=== PATIENT | male | born 1945 | race Caucasian/White ===

== ENCOUNTER 2018-01-08 12:22 | Outpatient (REF) | payer MEDICARE, SELFPAY ==
[2018-01-08 21:08] LABS: Anion Gap 7.2 mmol/L (3-11); BUN 18 mg/dL (7-18); CO2 27.8 mmol/L (21.0-32.0); CREATININE 0.85 mg/dL (0.70-1.30); Calcium 8.9 mg/dL (8.5-10.1); Chloride 102 mmol/L (98-107); Glucose 83 mg/dL (70-100); Potassium 4.4 mmol/L (3.5-5.1); Sodium 137 mmol/L (136-145)
[2018-01-10 10:38] LABS: Hepatitis C Ab w Rflx HCV PCR Negative (NEGAT)
== END 2018-01-08 12:42 ==
LOC: NCHCN 12:22
PROVIDERS: PCP Internal Medicine; Visit Provider Internal Medicine
DX: I10 Essential (primary) hypertension (principal); Z11.59 Encounter for screening for other viral diseases
CPT/HCPCS: 80048; 86803

== ENCOUNTER → 2018-05-10 12:43 | Outpatient (BNVA) | payer MEDICARE, SELFPAY | PROVIDERS: PCP Internal Medicine; Visit Provider Urology | DX: N40.1 Benign prostatic hyperplasia with lower urinary tract symptoms (principal); R31.0 Gross hematuria; N13.8 Other obstructive and reflux uropathy; R97.20 Elevated prostate specific antigen [PSA] | CPT/HCPCS: 99213 ==

== ENCOUNTER 2018-05-10 13:17 | Outpatient (CLI) | payer MEDICARE, SELFPAY | END 2018-05-10 13:37 | PROVIDERS: PCP Internal Medicine; Visit Provider Urology | DX: N40.1 Benign prostatic hyperplasia with lower urinary tract symptoms (principal); N13.8 Other obstructive and reflux uropathy | CPT/HCPCS: 36415; 99213; 84153 ==

== ENCOUNTER 2019-02-10 13:38 | Outpatient (REF) | payer MEDICARE, SELFPAY ==
[2019-02-10 21:41] LABS: Anion Gap 8.2 mmol/L (3-11); BUN 16 mg/dL (7-18); CO2 27.8 mmol/L (21.0-32.0); CREATININE 0.86 mg/dL (0.70-1.30); Chloride 106 mmol/L (98-107); Glucose 82 mg/dL (74-106); Potassium 4.3 mmol/L (3.5-5.1); Sodium 142 mmol/L (136-145)
== END 2019-02-10 13:58 ==
LOC: NCHCN 13:38
PROVIDERS: PCP Internal Medicine; Visit Provider Internal Medicine
DX: I10 Essential (primary) hypertension (principal)
CPT/HCPCS: 80048

== ENCOUNTER 2019-06-02 15:06 | Outpatient (REF) | payer MEDICARE, SELFPAY ==
[2019-06-02 21:17] LABS: HGB 15.2 g/dL (13.5-17.5); Mean Corp. HGB Concentration 35.3 g/dL (32.0-36.0); Mean Corpuscular Hemoglobin 30.3 pg (27.0-33.0); Mean Corpuscular Volume 85.8 fL (80-95); Mean Platelet Volume 9.1 fL (8.0-11.0); Platelet Count 294 x1000/uL (130-400); RBC 5.01 m/cumm (4.50-6.00); RBC Distribution Width 12.2 % (11.8-14.1)
[2019-06-02 21:45] LABS: ALT 95 U/L (16-63); AST 34 U/L (15-37); Albumin 3.1 g/dL (3.4-5.0); Alkaline Phosphatase 97 U/L (46-116); Anion Gap 8.1 mmol/L (3-11); BUN 15 mg/dL (7-18); Bilirubin, Total 0.4 mg/dL (0.2-1.0); CO2 25.9 mmol/L (21.0-32.0); CREATININE 0.87 mg/dL (0.70-1.30); Calcium 8.7 mg/dL (8.5-10.1); Chloride 104 mmol/L (98-107); Creatine Kinase 64 U/L (39-308); Glucose 107 mg/dL (74-106); LDH 215 U/L (85-227); Lipase 199 U/L (73-393); Potassium 4.1 mmol/L (3.5-5.1); Sodium 138 mmol/L (136-145); Total Protein 6.2 g/dL (6.4-8.2)
== END 2019-06-02 15:26 ==
LOC: NCHCN 15:06
PROVIDERS: PCP Internal Medicine; Visit Provider Internal Medicine
DX: R07.9 Chest pain, unspecified (principal); R10.10 Upper abdominal pain, unspecified; R11.10 Vomiting, unspecified
CPT/HCPCS: 80053; 82550; 83690; 85027; 83615

== ENCOUNTER 2019-06-19 00:28 | Outpatient (CLI) | payer MEDICARE, OTHER, SELFPAY ==
--- NOTE | 2019-06-19 | DI.US_ITS ---
APPROVED REPORT EXAM: Comprehensive 2D, Doppler, and color-flow Echocardiogram Patient Location: Out-Patient Asset Analyst: Va Fel[facility] RDCS (AE) Indications: Chest pain Other Information Study Quality: Good Conclusion Left Ventricle : The left ventricle is normal size. The left ventricular systolic function is normal. The left ventricular ejection fraction is within the normal range. There is normal left ventricular wall thickness. There is normal LV segmental wall motion. The left ventricular diastolic function is normal. LVEF is 50-55%. Right Ventricle : The right ventricle is normal size. The right ventricular systolic function is norm al. The RVSP is 27.7 mmHg. Atria : The left atrium size is normal. The right atrium size is normal. Valves: There are no hemodynamically significant valvular lesions. Great Vessels : IVC is normal in size and collapses >50% with inspiration. There is no prior echocardiogram available for comparison. Wall motion Left Ventricle The left ventricle is normal size. The left ventricular systolic function is normal. The left ventric ular ejection fraction is within the normal range. There is normal left ventricular wall thickness. T here is normal LV segmental wall motion. The left ventricular diastolic function is normal. There is no ventricular septal defect visualized. LVEF is 50-55%. Right Ventricle The right ventricle is normal size. The right ventricular systolic function is normal. The RVSP is 27 .7 mmHg. Atria The left atrium size is normal. The right atrium size is normal. The interatrial septum is intact wit h no evidence for an atrial septal defect. Aortic Valve The Aortic valve is sclerotic. Aortic valve is trileaflet. There is no aortic valvular stenosis. No a ortic regurgitation is present. Mitral Valve There is mitral annular calcification. No evidence of mitral valve stenosis. Trace mitral regurgitati on. Tricuspid Valve The tricuspid valve is normal in structure. There is no tricuspid valve stenosis. Mild tricuspid regu rgitation. Pulmonic Valve The pulmonary valve is normal in structure. There is no pulmonic valvular stenosis. Trace pulmonic re gurgitation. Great Vessels The aortic root is normal in size. Aortic arch is not well visualized. Ascending aorta is normal in c aliber. IVC is normal in size and collapses >50% with inspiration. Pericardium There is no pericardial effusion. There is no pleural effusion. 2D Dimensions IVSD d PLAX 0.97 cm M: 0.6-1.2 LV Vol A2C d MOD 89.3 mL LVPW d PLAX 0.93 cm M: 0.6 - 1.2 LV Vol A4C d MOD 127.2 mL LVID d PLAX 4.51 cm M: 4.2 - 5.8 LA vol/ BSA A2C s A-L 34.3 mL/m2 LVDs 3.15 cm M: 2.5 - 4.0 LA vol/ BSA A4C s A-L 36.8 mL/m2 Ao Root d 3.08 cm M: 3.1 - 3.7 LA Vol/ BSA Biplane s A-L 37.4 mL/m2 RA Area A4C 12.10 cm2 LA Area A4C s MOD 21.46 cm2 RA Vol/ BSA A4C s A-L 15.6 mL/m2 LA Area A2C s MOD 19.72 cm2 Ao Asc Diam d 3.57 cm M: 2.6 - 3.4 LV EF A4C MOD 53.7 % LV EF Teichholz 57.1 % LV EF A2C MOD 52.6 % LVEF (Hawthorne's) 53.47 % M: 52 - 72 LV EF Biplane MOD 53.5 % LV Volume 84.31 mL M: 62 - 150 LV Volume Index 45.32 mL/m2 M: 34 - 74 LV Vol Biplane MOD 109.8 mL FS 29.80 % M-Mode TAPSE 2.31 cm (M/F) >1.7 LV Diastology MV E' medial 0.073 (>0.07 m/s) E/A Ratio 1.0 LV E/e MED 9.45 (<14) MV E Vmax 0.69 (0.4-1.3 m/s) MV E' lateral 0.101 (>0.1 m/s) MV A Vmax 0.70 (0.4-1.3 m/s) LV E/e LAT 6.80 (<14) MV E/A Ratio 0.93 MV E/E' medial 9.47 MV E/E' lateral 6.84 Aortic Valve LVOT Area 3.74 cm2 AoV Area Vmax 3.07 cm2 LVOT Vmax 0.99 m/s AoV Area/ BSA (Vmax) 1.64 cm2/m2 LVOT Mean Darron. 0.61 m/s JED Mean Darron. 2.71 cm2 LVOT Peak Grad 4.0 mmHg JED Mean Darron. Index 1.45 cm2/m2 LVOT Mean Grad 1.8 mmHg LVOT VTI 0.218 m LVOT Diam s 2.15 cm (M/F) 1.5-2.5 AoV Vmax 1.21 (0.5-1.3 m/s) Velocity Ratio 0.81 AoV Mean Darron. 0.84 m/s AoV Peak Grad 5.9 mmHg LVOT SV 81.65 mL AoV Mean Grad 3.2 (<5 mmHg) AoV VTI 0.227 (0.18-0.25 m) AoV Area VTI 3.60 (2.5-4.5 cm2) AoV Area/ BSA (VTI) 1.92 cm/m2 Mitral Valve MV DT 215 (160-240 msec) MV PHT 62 msec MV Area PHT 3.52 cm2 Pulmonary Valve PV Vmax 1.05 (0.5-1.5 m/s) RVOT Peak Gr. 2.25 mmHg PV Peak Grad 4.4 mmHg RVOT Mean Gr. 1.05 mmHg PV Mean Grad 2.4 mmHg RVOT VTI 0.137 m PV VTI 0.187 m RVOT Vmax 0.75 m/s Tricuspid Valve TR Peak Grad 24.7 mmHg TR Vmax 2.49 m/s RA Pressure 3.00 mmHg RVSP (TR) 27.7 mmHg
== END 2019-06-19 00:48 ==
PROVIDERS: PCP Internal Medicine; Visit Provider Internal Medicine
DX: R07.89 Other chest pain (principal); I10 Essential (primary) hypertension
CPT/HCPCS: 93306

== ENCOUNTER 2019-11-13 20:39 | Outpatient (REF) | payer MEDICARE, OTHER, SELFPAY ==
[2019-11-17 10:19] LABS: Lyme Ab w Rflx to Lyme Confirm Negative (Negative)
== END 2019-11-13 20:59 ==
LOC: NCHCN 20:39
PROVIDERS: PCP Internal Medicine; Visit Provider Internal Medicine
DX: M17.11 Unilateral primary osteoarthritis, right knee (principal)
CPT/HCPCS: 86618

== ENCOUNTER 2020-11-12 16:35 | Outpatient (REF) | payer MEDICARE, OTHER, SELFPAY ==
[2020-11-12 21:06] LABS: HCT 46.1 % (40.0-50.0); HGB 15.4 g/dL (13.5-17.5); MCH 29.4 pg (27.0-33.0); MCHC 33.4 % (32.0-36.0); MCV 88.1 fL (80-95); MPV 9.1 fL (8.0-11.0); Platelet Count 314 10^3/uL (130-400); RBC 5.23 10^6/uL (4.36-5.78); RDW-SD 38.5 fL; WBC 7.67 10^3/uL (4.4-10.8)
[2020-11-12 21:33] LABS: ALT 30 U/L (16-63); AST 21 U/L (15-37); Albumin 3.8 g/dL (3.4-5.0); Alkaline Phosphatase 89 U/L (46-116); Anion Gap 8.3 mmol/L (3-11); BUN 14 mg/dL (7-18); Bilirubin, Total 0.7 mg/dL (0.2-1.0); CO2 25.7 mmol/L (21.0-32.0); Calcium 9.3 mg/dL (8.5-10.1); Chloride 106 mmol/L (98-107); Glucose 86 mg/dL (74-106); Potassium 4.5 mmol/L (3.5-5.1); Sodium 140 mmol/L (136-145); Total Protein 6.7 g/dL (6.4-8.2)
== END 2020-11-12 16:36 | disposition home or self-care (01) ==
LOC: NCHCN 16:35
PROVIDERS: PCP Internal Medicine; Visit Provider Family Medicine
DX: I10 Essential (primary) hypertension (principal); Z00.00 Encounter for general adult medical examination without abnormal findings; Z87.448 Personal history of other diseases of urinary system
CPT/HCPCS: 80053; 85027

== ENCOUNTER 2021-11-21 13:19 | Outpatient (REF) | payer MEDICARE, SELFPAY ==
[2021-11-21 15:37] LABS: Anion Gap 7.3 mmol/L (3-11); BUN 17 mg/dL (7-18); CO2 26.7 mmol/L (21.0-32.0); Calcium 9.3 mg/dL (8.5-10.1); Chloride 103 mmol/L (98-107); Estimated GFR 78.49 (mL/min/1.73m2); Glucose 102 mg/dL (74-106); Potassium 4.5 mmol/L (3.5-5.1); Sodium 137 mmol/L (136-145)
--- OUTSIDE RECORDS SUMMARY | 2021-11-22 13:23 | XMS_ITS | Encounter Summary ---
:1945 Author Organization [facility] [place] [address] Care Team Providers Name Role Phone Kishore Kumar MD Primary Care Provider Reason for Visit Reason Comments Right Toe Pain Encounter Details Date Type Department Care Team Description 10/13/2011 Office Visit Orthopaedics at [facility] Miguel Garnica MD Amputation, toe, [facility] ([facility] [address] [place] [address] ORTHOPAEDIC [phone] SURGERY [place] [id number] Social History Tobacco Use Types Packs/Day Years Used Date Never Smoker Smokeless Tobacco: Never Used Alcohol Use Standard Drinks/Week Comments Yes 5.8 (1 standard drink = 0.6 oz pure alco hol) Sex Assigned at Date Recorded Not on file documented as of this encounter Last Filed Vital Signs Vital Sign Reading Time Taken Comments Blood Pressure 138/72 10/13/2011 3:54 PM EDT Pulse - - Temperature - - Respiratory Rate - - Oxygen Saturation - - Inhaled Oxygen Concentration - - Weight 86.2 kg (190 lb) 10/13/2011 3:54 PM EDT Height 172.7 cm (5' 8) 10/13/2011 3:54 PM EDT Body Mass Index 28.89 10/13/2011 3:54 PM EDT documented in this encounter Progress Notes Trevor Arredondo MD - 10/13/2011 4:20 PM EDT Mr. Carroll returns in followup today. He was seen in the emergency department six days ago when a tree fell on his right foot, partially amputating his second toe. A completion amputation was done in the emergency department and he was discharged in a hard-soled shoe. He has done well and has been taking Keflex. The wound was undressed for the first time today and it shows some initial signs of healing and small areas of maceration in between the web spaces. The toe was rewrapped with Xeroform gauze and covered in Coban. He was provided with a new orthosis that would enable him to ambulate easier. We then again encouraged him to refrain from hard physical activity over the next few weeks. He willfinish taking in the other five days of Keflex and see us back in one week's time. He will do daily dressing changes. documented in this encounter Plan of Treatment Not on filedocumented as of this encounter Visit Diagnoses Diagnosis Amputation, toe, traumatic - Primary Traumatic amputation of toe(s) (complete ) (partial), without mention of complication documented in this encounter Care Teams Dispatcher Automobile Rental Relationship Specialty Start Date End Date Kishore Kumar MD PCP - General 10/07/11 [address] [place] [address] documented as of this encounter
--- OUTSIDE RECORDS SUMMARY | 2021-11-22 13:23 | XMS_ITS | Clinical Summary ---
:1945 Author Organization [facility] [place] [address] Care Team Providers Name Role Phone Kishore Kumar MD Primary Care Provider Allergies No known active allergies Medications Medication Sig Dispensed Refills Start Date End Date Status lisinopril Take 20 mg by 0 Activ e (PRINIVIL;ZESTRIL) 20 mg mouth daily. tablet finasteride (PROSCAR) 5 Take 5 mg by 0 Active mg tablet mouth daily. atorvastatin (LIPITOR) Take 40 mg by 0 Active 40 mg tablet mouth daily. tamsulosin (FLOMAX) 0.4 Take 0.4 mg by 0 Active mg capsule mouth daily. Active Problems Problem Noted Date Amputation, toe, traumatic 10/13/2011 Immunizations Name Administration Dates Next Due Tdap Vaccine 10/07/2011 Social History Tobacco Use Types Packs/Day Years Used Date Never Smoker Smokeless Tobacco: Never Used Alcohol Use Standard Drinks/Week Comments Yes 5.8 (1 standard drink = 0.6 oz pure alco hol) Sex Assigned at Date Recorded Not on file Last Filed Vital Signs Vital Sign Reading Time Taken Comments Blood Pressure 140/80 10/20/2011 2:43 PM EDT Pulse 57 10/07/2011 10:24 PM EDT Temperature 36.6 ??C (97.9 ??F) 10/07/2011 10:24 PM EDT Respiratory Rate 18 10/07/2011 10:24 PM EDT Oxygen Saturation 98% 10/07/2011 10:24 PM EDT Inhaled Oxygen Concentration - - Weight 83.9 kg (185 lb) 10/20/2011 2:43 PM EDT Height 172.7 cm (5' 8) 10/20/2011 2:43 PM EDT Body Mass Index 28.13 10/20/2011 2:43 PM EDT Plan of Treatment Health Maintenance Due Date Last Done Comments Covid-19 Vaccine (#1) 11/14/1950 Hepatitis C Screening 1963 Lipid Screening 1963 Colonoscopy 11/14/1991 Zoster vaccine (1 of 2) 1996 Advance Directive 2001 Pneumoccocal Vaccine: 65+ (1 - PCV) 11/14/2011 Tetanus vaccine 10/06/2021 10/07/2011 Influenza (Flu) vaccine (1 of 1 - Influenza standard 10/27/2021 series) Tdap adult Completed 10/07/2011 Care Teams Speech Pathology Teacher Relationship Specialty Start Date End Date Kishore Kumar MD PCP - General 10/07/11 [address] [place] [address]
--- OUTSIDE RECORDS SUMMARY | 2021-11-22 13:23 | XMS_ITS | Encounter Summary ---
:1945 [place] [address] Care Team Providers Name Role Phone Kishore Kumar MD Primary Care Provider Reason for Visit Reason Comments Toe Amputation Encounter Details Date Type Department Care Team Description 10/07/2011 Emergency Emergency Department [facility] [place] [address] [place] [address] Social History Tobacco Use Types Packs/Day Years Used Date Never Assessed Sex Assigned at Date Recorded Not on file documented as of this encounter Last Filed Vital Signs Vital Sign Reading Time Taken Comments Blood Pressure 147/84 10/07/2011 10:24 PM EDT Pulse 57 10/07/2011 10:24 PM EDT Temperature 36.6 ??C (97.9 ??F) 10/07/2011 10:24 PM EDT Respiratory Rate 18 10/07/2011 10:24 PM EDT Oxygen Saturation 98% 10/07/2011 10:24 PM EDT Inhaled Oxygen Concentration - - Weight - - Height - - Body Mass Index - - documented in this encounter Discharge Instructions Discharge aMrie Sebastian MD - 10/07/2011 10:47 PM EDT Orthopaedic Home Care Instructions Care of Your Broken Bone Below are general guidelines to follow after treatment for a fracture. We will give you more specific instructions depending on the type and location of your injury. You will need to be aware that these guidelines are only general, each person???s recovery may vary. If you have any questions after reading this sheet, please call us. 1. INJURY: Right 2nd toe traumatic amputation, revised in ED Activity Keep your cast/splint clean and dry until you return for follow-up. For the first 72 hours, keep your injured extremity raised as much as possible. Keep your injured extremity raised above the level of the heart. Use blankets and/or pillows to help. DO NOT allow the injured extremity to dangle or excessive swelling and pain will develop. Use ice over the injured extremity for about 72 hours - at least 3-4 times per day for 20 minutes keesha time. You can use a simple plastic bag with ice (double the bag!) and place the bag over the injured extremity. Ice is effective even through the casts. Too much activity will result in discomfort and swelling, and may slow healing. You will be much happier later if you follow activity restrictions. Less is better for the first week! Weight-bearing status: Weight bear as tolerated only wearing special post-op shoe. You may want to avoid putting pressure or strain near the toe for at least a few days to allow the tissues the best chance to heal. 2. Prescriptions You were given a prescription for oxycodone: take one - two tablets every 4-6 hours as needed. They can be constipating, so I recommend also taking a stool softener such as Colace 100mg 2x/day. Stop the stool softener if you develop diarrhea. You should not drive while taking narcotic medication You may also take Acetaminophen (Tylenol) for pain but do not take more than 3000mg per day. You should find yourself needing less and less pain medication after the first few days. Take your pain medicine as directed. Take any of your other usual medicines as directed. You were also given a script for Keflex (an antibiotic) it is important that you take this as directed to prevent infection. You should take all the pills as directed. 3. Please contact us if: You have excessive swelling. Typically you have not kept the injured extremity raised high enough. If the swelling does not go down after raising the injured extremity above the heart for 3 to 4 hours, call the clinic or come to the emergency department. You feel excessive pain or your injured extremity becomes numb. Again, this usually happens when the injured extremity is not raised high enough. If the pain does not lessen after 3 to 4 hours of strict elevation, call the clinic. ?? Your cast/splint is too tight. Follow the instructions about raising the extremity. ?? You have fever >100.4, chills, nausea, vomiting, drainage from wound or other signs of infection. If you have any questions or concerns, please call the following: Orthopaedic Clinic Sunday thru Sunday 8am - 5pm (see below) Orthopaedic Physician store consultant --After 5pm and Weekends [phone] We are interested in your prompt and healthy recovery. Please follow the above instructions. Please call the office (at number below) to verify your post fracture appointment, typically the following day or Sunday if you injure yourself over the weekend. Your care today was provided by Robbi Velásquez MD Follow up in 5-7 days will be arranged in the following orthopaedic clinic General orthopedic clinic (trauma/sports/pediatrics) [phone] Spine clinic [phone] AttachmentsThe following attachments cannot be sent through Care Everywhere.TOE AMPUTATION: WHAT TO EXPECT AT HOME (GERMAN)documented in this encounter Medications at Time of Discharge Medication Sig Dispensed Refills Start Date End Date cephALEXin (KEFLEX) 500 Take 1 capsule by 40 capsule 0 10/0610/17/2011 mg capsule mouth 4 times daily for 10 days. OXYcodone (ROXICODONE) 5 Take 1-2 tablets by 60 tablet 0 10/20/2011 mg immediate release mouth every 4 hours tablet as needed for Pain. documented as of this encounter ED Notes Jett Ahmadi RN - 10/07/2011 11:26 PM EDT Toe amputation and splint completed at bedside by ortho MD. Pt right foot splint c/d/i. Pt denies pain. Flat soled shoe placed on pt by MD. Pt ambulated out of the department without problems. Jett Ahmadi RN - 10/07/2011 9:18 PM EDT Labs drawn and sent as ordered. MD at bedside to irrigate wound. documented in this encounter Miscellaneous Notes Discharge Summary - Provider, Rolan - 10/09/2011 10:14 AM EDT Miscellaneous - Provider, Rolan - 10/08/2011 12:08 AM EDT Consult Note - Marie Velásquez MD - 10/07/2011 8:07 PM EDT Art Glass Designer Consult Note Name: Antonio Carroll Age: 65 y.o. Sex; Male Date of : 1945 PCP KISHORE KUMAR MD [phone] Reason for Consult: We have been asked to see Antonio Carroll at the request of No att. providers found, for evaluation of the patient's orthopaedic injuries and recommendations for treatment. I have reviewed the available records, interviewed and examined the patient. Date of Consultation: 10/07/2011 Place of Service: Emergency Department ID: 65 y.o. Male presents to [facility] with traumatic amputation of right 2nd toe. HPI Antonio Carroll is a 65 y.o. male was cutting a silver tree. He says that the silver tree fell, hitting a fir tree which then fell down. As he attempted to run away the butt of the tree (broken end) fell onto his right forefoot. He was wearing rubber much boots, but felt immediate pain. He removed hissock to see what happened and found a mutilated 2nd toe. No loss of consciousness, no other injuriesreported. Review of Systems No fever, chills, SOB, chest pain, nausea or other constitutional symptoms reported. Past Medical and Surgical History: BPH Hypertension Hypercholesterolemia Prostate Bx Traumatic amputation of part of left great toe Prior To Admission Medications: Proscar Finasteride Lisinopril Crestor Allergies: No Known Allergies Family History: No family history on file. Social History and Habits: History Social History ??? Marital Status: Single Spouse Name: N/A Number of Children: N/A ??? Years of Education: N/A Occupational History ??? Not on file. Social History Main Topics ??? Smoking status: Not on file ??? Smokeless tobacco: Not on file ??? Alcohol Use: Not on file ??? Drug Use: Not on file ??? Sexually Active: Not on file Other Topics Concern ??? Not on file Social History Narrative ??? No narrative on file Immunizations: Immunization History Administered Date(s) Administered ??? Tdap 10/07/2011 Physical Exam: Last Set of Vitals: BP 147/84 Pulse 57 Temp(Src) 36.6 ??C (97.9 ??F) (Oral) Resp 18 SpO2 98% Physical Exam Focused Exam: Right Lower Extremity: Grossly mutilated 2nd toe. DIP hanging on by small skin bridge, middle phalanx entirely degloved. Painless range of motion to hip, knee and ankle. No gross deformity. Skin intact. Compartments soft. Crepitus not present. posterior tibial pulse 2+, dorsalis pedis pulse 2+. Sensation superficial peroneal intact, deep peroneal intact, tibial intact, medial plantar intact, lateral plantar intact, saphenous nerve distribution intact and sural nerve distribution intact. Sensation diminished at base of 2ndtoe and not present in distal toe Motor: 5/5 EHL, ankle dorsiflexion and plantarflexion Laboratory: Lab Results Component Value Date WBC 9.0 10/07/2011 Imaging: XR right foot: There is a comminuted intraarticular fracture of the distal phalanx of the 2nd toe with lateral and inferior displacement of the comminuted fragments. There is involvement of the middle phalanx as well, with a cortical disruption seen on lateral distal aspect (at the DIP joint) and a laterally displaced osteophyte fracture of the proximal lateral aspect (at the PIP joint). Procedure: Digital block performed with 15cc of 1% lidocaine and 0.5% bupivicaine Wound was irrigated copiously using 4L of NS Tenotomy scissors and a freer were used to expose the entire middle phalanx The bone was debrided back using a rongueur to the PIP joint. The skin and soft tissue were brought together to cover the proximal phalanx and closed using 3.0 nylon interrupted sutures. Assessment: Antonio Carroll is a 65 y.o. male with traumatic amputation of right 2nd toe. History is a bit strange given reported mechanism, but significant skin loss with middle phalanx exposed. Wound was irrigated, nonviable tissue from distal toe was removed. The middle phalanx was debrided back to the PIP joint. There was adequate skin at the base of the toe to allow for coverage of the proximal phalanx. Thewound was loosely closed to cover bone, dressed with xeroform, gauze, ABDs and LEO wrap. Recommendations: ?? Activity NWB RLE ?? Pain Control ?? Antibiotics patient received 2g of Ancef at [facility] ?? Keflex QID x10 days ?? Tetanus booster given ?? Discussed with Attending Staff, Dr. Garnica ?? Please call Dr. Velásquez on pager # [phone] with questions or concerns. ?? Attending store consultant: Dr. Danika VELÁSQUEZ MD 10/07/2011 ED Triage - Jett Ahmadi, RN - 10/07/2011 7:34 PM EDT At 4pm, pt states that a tree branch fell on his right foot and amputated his right 2nd to. Pt seen at outside hospital and transferred here for ortho eval. EMS reports that toe is still attached by a skin flap. Dressing on right foot c/d/i. Pt states last tetanus shot was 4 years ago. documented in this encounter Plan of Treatment Not on filedocumented as of this encounter Procedures Procedure Name Priority Date/Time Associated Comments Diagnosis XR FOOT MINIMUM 3 STAT 10/07/2011 11:04 Result s for this VIEWS PM EDT procedure are i n the results section. DIFFERENTIAL, STAT 10/07/2011 9:00 PM Results for this AUTOMATED EDT procedure are i n the results section. ABO/RH TYPING STAT 10/07/2011 9:00 PM Results for this EDT procedure are i n the results section. APTT STAT 10/07/2011 9:00 PM Results f or this EDT procedure are i n the results section. PROTHROMBIN TIME STAT 10/07/2011 9:00 PM Resul ts for this EDT procedure are i n the results section. CBC (WITH DIFF) STAT 10/07/2011 9:00 PM Result s for this EDT procedure are i n the results section. ANTIBODY SCREEN STAT 10/07/2011 9:00 PM Result s for this EDT procedure are i n the results section. TYPE AND SCREEN STAT 10/07/2011 9:00 PM ([facility]) EDT BASIC METABOLIC PANEL Routine 10/07/2011 9:00 PM Results for this (NON-FASTING) EDT procedure are in the results section. XR FOOT MINIMUM 3 STAT 10/07/2011 8:32 PM Resu lts for this VIEWS EDT procedure are i n the results section. documented in this encounter Results XR foot minimum 3 views (10/07/2011 11:04 PM EDT) Anatomical Region Laterality Modality Foot N/A Radiographic Imaging Specimen (Source) Anatomical Collection Method Collection Time Re ceived Time Location / / Volume Laterality 10/07/2011 11:04 PM EDT Narrative 10/08/2011 9:08 AM EDT Examination FOOT MIN 3 VIEWS/RIGHT Clinical History s/p traumatic amputation , s/p debrideme nt Comparison 2011 at 20/30 4. Technique 3 views of the right foot AP oblique and lateral. Findings There has been interval amputation of th e distal and middle phalanges of the 2nd digit of the right foot. Punctate ca lcific densities at surgical site may represent residual bone fragments. ??Alt ernatively, these may be related to the bandaging. Film and interpretation reviewed by the attending Procedure Note Clarice Merritt MD - 10/08/2011Formatt ing of this note might be different from the original. Examination FOOT MIN 3 VIEWS/RIGHT Clinical History s/p traumatic amputation , s/p debrideme nt Comparison 2011 at 20/30 4. Technique 3 views of the right foot AP oblique and lateral. Findings There has been interval amputation of th e distal and middle phalanges of the 2nd digit of the right foot. Punctate ca lcific densities at surgical site may represent residual bone fragments. Alter natively, these may be related to the bandaging. Film and interpretation reviewed by the attending Miguel Garnica MD IMG DX ORDERABLES ANTIBODY SCREEN (10/07/2011 9:00 PM EDT) Analysis Performed At Path logist Time Signature Ab Screen Negative [facility] Expires at [id number] CERNER [id number] on: MILLENNIUM Specimen Anatomical Collection Method Collection Time Receive d Time (Source) Location / / Volume Laterality Blood specimen 10/07/2011 9:00 PM 012 9:31 (specimen) EDT PM EDT Resulting Agency Comment Spec In Lab Robin Tejada MD BLOOD BANK ORDERABLES Performing Organization Address City/State/ZIP Code Phon e Number [address] CERNER MILLENNIUM ABO/RH TYPING (10/07/2011 9:00 PM EDT) athologist Signature ABORh Type A Pos CERNER MILLENNIUM Specimen Anatomical Collection Method Collection Time Receive d Time (Source) Location / / Volume Laterality Blood specimen 10/07/2011 9:00 PM 012 9:31 (specimen) EDT PM EDT Resulting Agency Comment Spec In Lab Robin Tejada MD BLOOD BANK ORDERABLES Performing Organization Address City/[facility] Phon e Number [address] CERNER MILLENNIUM DIFFERENTIAL, AUTOMATED (10/07/2011 9:00 PM EDT) athologist Signature Neutrophils % 66.7 34.0 - CERNER 71.0 % MILLENNIUM Neutr Abs (ANC) 5.98 1.50 - CERNER 6.30 MILLENNIUM x10(3)/mcL Lymphocytes % 23.5 19.0 - CERNER 53.0 % MILLENNIUM Lymphocytes Abs 2.1 1.0 - 3.6 CERNER x10(3)/mcL MILLENNIUM Monocytes % 8.0 4.0 - 13.0 CERNER % MILLENNIUM Monocyte Abs 0.7 0.2 - 1.0 CERNER x10(3)/mcL MILLENNIUM Eosinophils % 1.2 0.0 - 7.0 CERNER % MILLENNIUM Eosinophils Abs 0.1 0.0 - 0.5 CERNER x10(3)/mcL MILLENNIUM Basophils % 0.4 0.0 - 2.0 CERNER % MILLENNIUM Basophils Abs 0.0 0.0 - 0.2 CERNER x10(3)/mcL MILLENNIUM Immature Gran % 0.20 0.00 - CERNER 0.66 % MILLENNIUM Comment: Immature granulocytes(IG's)percentage an d absolute count will include metamyelocytes, myelocytes, and promyelo cytes. Blood smears from CBCs yielding IG's will be scanned manually for concor dance. If this scan disagrees with the automated IG or if promyelocytes are not ed, a manual differential will be performed. Christina Gran Abs 0.02 0.00 - 0.05 x10(3)/mcL CER NER MILLENNIUM Specimen Anatomical Collection Method Collection Time Receive d Time (Source) Location / / Volume Laterality Blood specimen 10/07/2011 9:00 PM 012 9:09 (specimen) EDT PM EDT Robin Tejada MD HEMATOLOGY ORDERABLES Performing Organization Address City/[facility]/[place] [address] CERNER MILLENNIUM APTT (10/07/2011 9:00 PM EDT) P athologist Signature PTT 29 25 - 35 sec CERNER MILLENNIUM Comment: Recommended therapeutic PTT range for fu ll dose unfractionated heparin is 80-114 seconds. Specimen Anatomical Collection Method Collection Time Receive d Time (Source) Location / / Volume Laterality Blood specimen 10/07/2011 9:00 PM 012 9:09 (specimen) EDT PM EDT Resulting Agency Comment Spec In Lab Robin Tejada MD HEMATOLOGY ORDERABLES Performing Organization Address City/[facility]/[place] [address] CERNER MILLENNIUM Prothrombin Time (10/07/2011 9:00 PM EDT) P athologist Signature PT 13.1 11.9 - 14.7 CERNER sec MILLENNIUM Comment: [facility] Transfusion Committee Guidelines: I NR less than 2.0, PTT less than OR equal to 43.5 seconds, or Fibrinogen gre ater than or equal to 100 mg/dl indicate adequate procoagulant activity for hemostasis in patients without underlying bleeding disorders. INR 1.0 0.9 - 1.1 CERNER MILLENNIUM Specimen Anatomical Collection Method Collection Time Receive d Time (Source) Location / / Volume Laterality Blood specimen 10/07/2011 9:00 PM 012 9:09 (specimen) EDT PM EDT Resulting Agency Comment Spec In Lab Robin Tejada MD HEMATOLOGY ORDERABLES Performing Organization Address City/State/[place] [address] CERNER MILLENNIUM (ABNORMAL) Basic Metabolic Panel (non-fasting) (10/07/2011 9:00 PM EDT) athologist Signature Glucose Lvl 87 60 - 199 CERNER mg/dL MILLENNIUM Comment: Diabetes: >=200 mg/dL plus symp toms BUN 17 10 - 20 mg/dL CERNER MILLENNIU M Creatinine 0.91 0.80 - 1.50 mg/dL CERNER MILL ENNIUM Comment: Please note that the pediatric reference intervals supplied above were not validated at [facility]. Results from pediatri c patients should be interpreted in conjunction to the patient's age, height and muscle mass. Sodium 138 135 - 145 mmol/L CERNER ROBERTO NIUM Potassium 4.3 3.5 - 5.0 mmol/L CERNER ROBERTO NIUM Comment: Please note: ??Patients with WBC >100,00 0 may have falsely elevated Potassium levels. ??For accurate Potassium quantif ication in these patients send serum separator tube (gold top) for subsequent determinations. ??Contact the Clinical Chemistry Laboratory if there are any qu estions. Chloride 107 98 - 107 mmol/L CERNER MILLENN IUM CO2 23 22 - 31 mmol/L CERNER MILLENNI UM Anion Gap 8 5 - 15 mmol/L CERNER MILLENNIU M Calcium 8.3 (L) 8.5 - 10.5 mg/dL CERNER ROBERTO NIUM Estimated GFR >60 >=60 CERNER MILLENNIU M Comment: The National Kidney Disease Education Pr ogram (NKDEP) has recommended all laboratories report estimated GFR (eGFR) along with plasma creatinine measurements to assist you with recognit ion of early kidney disease. Caveats: ??Plasma creatinine should be a t steady-state (unchanged within the past week). For patient s multiply eGFR by 1.2. The MDRD equation was developed using patients be tween the ages of 18 and 70 years. ?? The MDRD equation has not been validated for patients < 18 years of age and should not be used to assess renal function in the pediatric population. ??The MDRD eGFR equation will also overestimate the true GFR of patients above the age of 70. ??This overestimation is variable bu t increases with age. At present, NKDEP does NOT recommend usi ng the MDRD equation for drug dosing purposes and pharmacists should continue to use their current dosing methods. In addition, numerical eGFR values great er than 60 ml/min/1.73 square meters should be treated as > 60, and not an ex act number due to greater inaccuracies at these higher values. Per NKDEP, they classify normal renal function as any GFR >60ml/min/1.73 square meters; chronic kidney disease wh en GFR <60, and renal failure when GFR <15. ??This calculation may not be valid for patients with atypical muscle mass (very lean or obese), acute renal failur e, and in patients with diabetic kidney disease. References: http://nkdep.nih.gov/resources/NKCTP_Sug gestn4Labs_0606_508.pdf http://www.kidney.org/professionals/kls/ pdf/faq_gfr.pdf Dameon K, Ratna NA, Lashonda AK, Henry TS, Nithin AD, Dariela ALEX. Relative performance of the MDRD and CKD-EPI equa tions for estimating glomerular filtration rate among patients with vari ed clinical presentations. Clin J Am Soc Nephrol;6:1963-72. Specimen Anatomical Collection Method Collection Time Receive d Time (Source) Location / / Volume Laterality Blood specimen 10/07/2011 9:00 PM 012 9:09 (specimen) EDT PM EDT Resulting Agency Comment Spec In Lab Robin Tejada MD CHEMISTRY ORDERABLES Performing Organization Address City/State/ZIP Code Phon e Number [place] [phone] [facility] (ABNORMAL) CBC (with Diff) (10/07/2011 9:00 PM EDT) P athologist Signature WBC 9.0 4.0 - 10.0 CERNER x10(3)/mcL MILLENNIUM RBC 5.04 4.63 - 6.08 CERNER x10(6)/mcL MILLENNIUM Hemoglobin 15.4 13.7 - 17.5 CERNER gm/dL MILLENNIUM Hematocrit 43.6 40.0 - 51.0 CERNER % MILLENNIUM MCV 86.5 79.0 - 92.0 CERNER fL MILLENNIUM MCH 30.6 25.6 - 32.2 CERNER pg MILLENNIUM MCHC 35.3 32.0 - 36.5 CERNER gm/dL MILLENNIUM Platelets 220 145 - 370 CERNER x10(3)/mcL MILLENNIUM RDWSD 38.8 35.0 - 46.0 CERNER fL MILLENNIUM RDWCV 12.2 10.9 - 14.4 CERNER % MILLENNIUM MPV 8.8 (L) 9.0 - 12.0 CERNER fL MILLENNIUM Specimen Anatomical Collection Method Collection Time Receive d Time (Source) Location / / Volume Laterality Blood specimen 10/07/2011 9:00 PM 012 9:09 (specimen) EDT PM EDT Resulting Agency Comment Spec In Lab Robin Tejada MD HEMATOLOGY ORDERABLES Performing Organization Address City/State/ZIP Code Phon e Number [place] [phone] BANNERNER MILLENNIUM XR foot minimum 3 views (10/07/2011 8:32 PM EDT) Anatomical Region Laterality Modality Foot N/A Radiographic Imaging Specimen (Source) Anatomical Collection Method Collection Time Re ceived Time Location / / Volume Laterality 10/07/2011 8:32 PM EDT Narrative 10/08/2011 8:56 AM EDT Examination FOOT MIN 3 VIEWS/RIGHT Clinical History s/p traumatic amputation of right 2nd to e Comparison None Technique 3 views of the right foot AP oblique and lateral. Findings There is traumatic amputation of the 2nd distal phalanx at the DIP joint. The 2nd distal phalanx is completely shatter ed with multiple displaced comminuted fracture fragments. There is involvement of the 2nd middle phalanx which has a small displaced intra-articular fracture at its lateral base. 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 Irregula r osteophytes are also present in the distal tibia, at the tibiotalar joint. Impression Traumatic amputation at the 2nd DIP join t Shattered 2nd distal phalanx with large number of comminuted displaced bone fragments Additional intra-articular fracture of t he base of the 2nd middle phalanx. Film and interpretation reviewed by the attending Procedure Note Clarice Merritt MD - 10/08/2011Formatt ing of this note might be different from the original. Examination FOOT MIN 3 VIEWS/RIGHT Clinical History s/p traumatic amputation of right 2nd to e Comparison None Technique 3 views of the right foot AP oblique and lateral. Findings There is traumatic amputation of the 2nd distal phalanx at the DIP joint. The 2nd distal phalanx is completely shatter ed with multiple displaced comminuted fracture fragments. There is involvement of the 2nd middle phalanx which has a small displaced intra-articular fracture at its lateral base. 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 Irregula r osteophytes are also present in the distal tibia, at the tibiotalar joint. Impression Traumatic amputation at the 2nd DIP join t Shattered 2nd distal phalanx with large number of comminuted displaced bone fragments Additional intra-articular fracture of t he base of the 2nd middle phalanx. Film and interpretation reviewed by the attending Miguel Garnica MD IMG DX ORDERABLES documented in this encounter Visit Diagnoses Not on filedocumented in this encounter Administered Medications Inactive Administered Medications - up to 3 most recent administrations Medication Order MAR Action Action Date Dose Rate Site BUpivacaine (PF) (MARCAINE) 0.5 Given by Other 10/07/2011 9:00 PM EDT 1 mg % (5 mg/mL) injection 1 dose, Starting on 10/07/11 at 2048, Until 10/07/11 at 2099, BRIGIDO MCKENZIE: Cabinet Override documented in this encounter Active and Recently Administered Medications Times are shown in EDT. No Frequency Medication Order 10/05/2011 10/06/2011 10/07/2011 BUpivacaine (PF) (MARCAINE) 0.5 % (5 mg/mL) injection (COMPLETED ) 2099 (Given by Other - Provider: Brigido Mckenzie RN - Comment: Bottle given to MD Velásquez at her request for her administration.) 1 dose, Starting on 10/07/11 at 2048, Until 10/07/11 at 2099, BRIGIDO MCKENZIE: Cabinet Override documented in this encounter Care Teams Corrosion Technician Relationship Specialty Start Date End Date Kishore Kumar MD PCP - General 10/07/11 [address] [place] [address] documented as of this encounter
--- OUTSIDE RECORDS SUMMARY | 2021-11-22 13:24 | XMS_ITS | Encounter Summary ---
:1945 Author Organization [facility] Address [address] [place] [address] Care Team Providers Name Role Phone Unavailable Primary Care Provider Unavailable Encounter Details Date Type Department Care Team Description 12/31/2012 Hospital Encounter [facility] - S Unknown, Pro Lana wagoner MD [address] [facility] [phone] [place] [address] (Work) [phone] Social History Tobacco Use Types Packs/Day Years Used Date Never Assessed Sex Assigned at Date Recorded Not on file documented as of this encounter Discharge Disposition Disposition Code Departure Means Destination Home or Self [place] documented in this encounter Plan of Treatment Not on filedocumented as of this encounter Visit Diagnoses Not on filedocumented in this encounter
--- OUTSIDE RECORDS SUMMARY | 2021-11-22 13:24 | XMS_ITS | Encounter Summary ---
:1945 Author Organization [facility] Address [address] [place] [address] Care Team Providers Name Role Phone Kishore Kumar MD Primary Care Provider Encounter Details Date Type Department Care Team Description 05/25/2016 Hospital Encounter [facility] - S Unknown, Pro Lana wagoner MD 1 [facility] [phone] [place] [address] (Work) [phone] Social History Tobacco Use Types Packs/Day Years Used Date Never Assessed Sex Assigned at Date Recorded Not on file documented as of this encounter Discharge Disposition Disposition Code Departure Means Destination Home or Self Usp documented in this encounter Plan of Treatment Not on filedocumented as of this encounter Visit Diagnoses Not on filedocumented in this encounter Care Teams Vp Informatics Relationship Specialty Start Date End Date Kishore Kumar MD PCP - General 01/01/13 [address] [place] [address] documented as of this encounter
--- OUTSIDE RECORDS SUMMARY | 2021-11-22 13:24 | XMS_ITS | Encounter Summary ---
:1945 Author Organization [facility] Address [address] [place] [address] Care Team Providers Name Role Phone Unavailable Primary Care Provider Unavailable Encounter Details Date Type Department Care Team Description 12/31/[address] [facility] Esthela Cunningham MD [phone] [address] [facility] [address] [place] [phone] (Wo rk) Social History Tobacco Use Types Packs/Day Years Used Date Never Assessed Sex Assigned at Date Recorded Not on file documented as of this encounter Plan of Treatment Not on filedocumented as of this encounter Procedures Procedure Name Priority Date/Time Associated Diagnosis Comme nts SURGICAL PATHOLOGY Routine 12/31/2012 21:57 Resul ts for this EST procedure are i n the results section. documented in this encounter Results SURGICAL PATHOLOGY (12/31/2012 21:57 EST) Pathology Report: SURGICAL PATHOLOGY REPORT [facility] Reports generated via electronic interface contain bennett ginal data; LAB however they are lacking the format of the original re port. Caution should be taken when reading/interpreting unfo rmatted reports. Name: ? MIKE DODGE ? Accession #: ? [id number] ? : ? 1945 (Age: 67) ??M ? Collect Date: ? 12/31/2012 ? Location: ? [facility] ? Receive Date: ? 013 ? Provider: ESTHELA CUNNINGHAM MD Copy to: ROBERT TURNER MD ? Final Pathologic Diagnosis: PROSTATE, TRANSURETHRAL CURETTAGE: - ??Prostatic glandular and stromal hyperplasia. Document reviewed and electronically signed by: LESA RASMUSSEN MD Report ??Date: 01/02/2013 16:20 By the signature above, the attending physician certif ies that he/she has personally conducted a gross and/or microscopic examin ation of the described specimens and rendered or confirmed the above diagnosi s. Specimen(s) Received: Prostate tissue Clinical History: BPH with obstruction Gross Description: ? Received in formalin labelled with proper patient identification (initials M, S) and prostate tissue are multiple whitten-dickinson, rubbery and cauterized soft tissue fragments (19.5 g, 8.5 x 6.0 x 2.0 cm in aggreg ate). Human Resources Talent Manager sections are submitted in cassettes 1-9. Kayla Mccarty 01/01/2013 10:34 AM End of Report Specimen Performing Organization Address City/State/ZIP Code Phon e Number [facility] [address] [place] [address] SERVICES [facility] [address] [place] [address] documented in this encounter Visit Diagnoses Not on filedocumented in this encounter
--- OUTSIDE RECORDS SUMMARY | 2021-11-22 13:24 | XMS_ITS | Encounter Summary ---
:1945 Author Organization [facility] Address [address] [place] [address] Care Team Providers Name Role Phone Unavailable Primary Care Provider Unavailable Encounter Details Date Type Department Care Team Description 01/30/2003 Results Only [facility] - [place]ortney mendoza, Jean Marie Garcia MD conversion [address] [address] [phone] Social History Tobacco Use Types Packs/Day Years Used Date Never Assessed Sex Assigned at Date Recorded Not on file documented as of this encounter Plan of Treatment Not on filedocumented as of this encounter Procedures Procedure Name Priority Date/Time Associated Diagnosis Comme nts SURGICAL PATHOLOGY Routine 01/30/2003 0:00 EST Re sults for this procedure are i n the results section. documented in this encounter Results SURGICAL PATHOLOGY (01/30/2003 0:00 EST) Pathology Report: SURGICAL PATHOLOGY REPORT [facility] Reports generated via electronic interface contain bennett ginal data; LAB however they are lacking the format of the original re port. Caution should be taken when reading/interpreting unfo rmatted reports. Name: ? ELVIS DODGE ? Accession #: ? [id number] ? : ? 1945 (Age: 57) ??M ? Collect Date: ? 01/30/2003 ? Location: ? [facility] ? Receive Date: ? 003 ? Provider: JEAN MARIE THORPE MD Copy to: ROBERT TURNER MD ? Final Pathologic Diagnosis: A. ?Prostate, right apex, biopsy: 1. ?Benign prostatic glands and stroma wi th atrophy. 2. ?Acute and chronic prostatitis with eo sinophils. B. ?Prostate, right mid, biopsy: 1. ?Benign prostatic glands and stroma wi th atrophy. 2. ?Single focus of cribriform hyperplasi a. 3. ?Acute and chronic prostatitis. C. ?Prostate, right base, biopsy: 1. ?Benign prostatic glands and stroma wi th atrophy. 2. ?Chronic prostatitis. D. ?Prostate, left apex, biopsy: 1. ?Benign prostatic glands and stroma wi th atrophy. 2. ?Acute and chronic prostatitis. E. ?Prostate, left mid, biopsy: 1. ?Benign prostatic glands and stroma wi th atrophy. 2. ?Acute and chronic prostatitis. F. ?Prostate, left base, biopsy: 1. ?Benign prostatic glands and stroma wi th atrophy. 2. ?Chronic prostatitis. Document reviewed and electronically signed by: Fidelina Pang [facility] Report ??Date: 02/05/2003 15:11 By the signature above, the attending physician certif ies that he/she has personally conducted a gross and/or microscopic examin ation of the described specimens and rendered or confirmed the above diagnosi s. Specimen(s) Received: ? Ultrasound guided core biopsy - prostate A. ?Rt apex (#1) B. ?Rt mid (#2) C. ?Rt base (#3) D. ?Lt apex (#4) E. ?Lt mid (#5) F. ?Lt base (#6) Clinical History: ? Elevated PSA 4.4 % free; PSA 0.7; previous () b iopsy 03/07/02 Gross Description: ? Received in formalin labelled Dodge and #1 ??Rt apex are two whitten-white tissues measuring 1.9 x 0.1 x 0.1 cm and 1.8 x 0.1 x 0.1 cm, which are submitted as (A). Received in formalin labelled Dodge and #2 ??Rt mi d are three whitten-white tissues which vary in size f rom 0.2 x 0.1 x 0.1 cm to 2.4 x 0.1 x 0.1 cm, which are submitted as (B). Received in formalin labelled Dodge and #3 ? ?Rt base are three whitten-white tissues which vary in size f rom 0.2 x 0.1 x 0.1 cm to 1.5 x 0.1 x 0.1 cm, which are submitted as (C). ?? Received in formalin labelled Dodge and #4 ??Lt ap ex are two whitten-white tissues which vary in size f rom 1.9 x 0.1 x 0.1 cm to 2.0 x 0.1 x 0.1 cm, which are submitted as (D). Received in formalin labelled Dodge and #5 ??Lt mi d are two whitten-white tissues which vary in size f rom 1.9 x 0.1 x 0.1 cm to 2.4 x 0.1 x 0.1 cm, which are submitted as (E). Received in formalin labelled Dodge and #6 ??Lt ba se are two whitten-white tissues each measuring 1.5 x 0.1 x 0.1 cm, which are submitted as (F). ??(Dr. Guthrie-TRINIDAD)/[facility] End of Report Specimen Performing Organization Address City/State/ZIP Code Phon e Number [facility] [address] [place] [address] SERVICES [facility] [address] [place] [address] documented in this encounter Visit Diagnoses Not on filedocumented in this encounter
--- OUTSIDE RECORDS SUMMARY | 2021-11-22 13:24 | XMS_ITS | Encounter Summary ---
:1945 Author Organization [facility] Address [address] [place] [address] Care Team Providers Name Role Phone Kishore Kumar MD Primary Care Provider Encounter Details Date Type Department Care Team Description 11/14/2019 Lab Requisition [facility] Outr Resulting Lab, Pathology & Laboratory Provider [facility] [address] [place], [place] [address] Social History Tobacco Use Types Packs/Day Years Used Date Never Assessed Sex Assigned at Date Recorded Not on file documented as of this encounter Plan of Treatment Not on filedocumented as of this encounter Procedures Procedure Name Priority Date/Time Associated Diagnosis Comme nts LYME AB Routine 2019 12:40 EDT Results for this procedure are i n the results section . documented in this encounter Results LYME AB (2019 12:40 EDT) Pathologist Sig nature Lyme Ab NegativeComment: New Negative [facility] 3rd generation assay LABORATORY SERVICES in use 08/06/2019 Specimen Blood - Venous blood (substance) Performing Organization Address City/State/ZIP Code Phon e Number [facility] [address] [place] [address] SERVICES documented in this encounter Visit Diagnoses Not on filedocumented in this encounter Care Teams Lumber Stacker Driver Relationship Specialty Start Date End Date Kishore Kumar MD PCP - General 01/01/13 [address] [place], [place] [id number] documented as of this encounter
--- OUTSIDE RECORDS SUMMARY | 2021-11-22 13:24 | XMS_ITS | Encounter Summary ---
:[address] [facility] Address [address] [place] [address] Care Team Providers Name Role Phone Unavailable Primary Care Provider Unavailable Encounter Details Date Type Department Care Team Description 03/07/2002 Results Only [facility] - Kortney mendoza, Jean Marie Garcia MD conversion [address] [address] [phone] Social History Tobacco Use Types Packs/Day Years Used Date Never Assessed Sex Assigned at Date Recorded Not on file documented as of this encounter Plan of Treatment Not on filedocumented as of this encounter Procedures Procedure Name Priority Date/Time Associated Diagnosis Comme nts SURGICAL PATHOLOGY Routine 03/07/2002 0:00 EST Re sults for this procedure are i n the results section. documented in this encounter Results SURGICAL PATHOLOGY (03/07/2002 0:00 EST) Pathology Report: SURGICAL PATHOLOGY REPORT [facility] Reports generated via electronic interface contain bennett ginal data; LAB however they are lacking the format of the original re port. Caution should be taken when reading/interpreting unfo rmatted reports. Name: ? ELVIS DODGE ? Accession #: ? [id number] ? : ? 1945 (Age: 56) ??M ? Collect Date: ? 03/07/2002 ? Location: ? [facility] ? Receive Date: ? 003 ? Provider: JEAN MARIE THORPE MD Copy to: SHANELL TURNER MD ? Final Pathologic Diagnosis: A. ?Prostate, right base, needle biopsy: 1. ?High grade prostatic intraepithelial neoplasia (PIN), focal. ??See comment. 2. ?Chronic prostatitis. B. ?Prostate, right mid, needle biopsy: 1. ?Benign pros tatic glands and stroma with basal cell hyperplasia and focal atrophy. 2. ?Acute and chronic prostatitis. 3. ?Negative for malignancy. C. ?Prostate, right apex, needle biopsy: 1. ?Benign pros tatic glands and stroma with atrophy. ??See comment. 2. ?Acute and chronic prostatitis. 3. ?Negative for malignancy. D. ?Prostate, left base, needle biopsy: 1. ?Benign prostatic glands and stroma wi th atrophy. 2. ?Acute and chronic prostatitis. 3. ?Negative for malignancy. E. ?Prostate, left mid, needle biopsy: 1. ?Benign pros tatic glands and stroma with basal cell hyperplasia and focal atrophy. ??See comment. 2. ?Acute and chronic prostatitis. 3. ?Negative for malignancy F. ?Prostate, left apex, needle biopsy: 1. ?Benign prostatic glands and stroma wi th atrophy. 2. ?Acute and chronic prostatitis. 3. ?Negative for malignancy. ?? Comment: ? Deeper sections of (A ) have been examined. ??Director Occupational sections of (A), (C), and (E) have been revie wed at intradepartmental consultation conference. ?? Document reviewed and electronically signed by: LESA RASMUSSEN MD Report ??Date: 03/13/2002 14:15 By the signature above, the attending physician certif ies that he/she has personally conducted a gross and/or microscopic examin ation of the described specimens and rendered or confirmed the above diagnosi s. Specimen(s) Received: A. ?Rt base (#1) B. ?Rt mid (x2) (#2) C. ?Rt apex (#3) D. ?Lt base(#4) E. ?Lt mid (x2) (#5) F. ?Lt apex (#6) Clinical History: ? R sided firmness Gross Description: ? Received in formalin labeled Dodge and Rt base is a single cylinder of whitten-red tissue measuring 1.0 cm in length and 0.1 cm in diameter. ??The specimen is submitted entirely as (A). Received in formalin labeled Dodge and Rt mi d are two cylinders of white tissue measuring 1.0 and 1.1 cm in length respectively, with diameters of 0.1 cm and 0.1 cm. ??The specimen is submitted entirely as (B ). Received in formalin labeled Dodge and Rt apex is a single cylinder of white-whitten tissue measuring 1.5 cm in length and 0.1 cm in diameter. ??The specimen is submitted entirely as (C). Received in formalin labeled Dodge and Lt base is a single cylinder of whitten-white tissue measuring 1.8 cm in length and 0.1 cm in diameter. ??The specimen is submitted entirely as (D). Received in formalin labeled Dodge and Lt mid are two cylinders of white-whitten tissue measuring 1 .8 and 2.0 cm in length respectively. ??Both have a diameter of 0.1 cm. ??The specimen is submitted entire ly as (E). Received in formalin labeled Dodge and Lt apex is a single cylinder of white-whitten tissue measuring 1.0 cm in length and 0.1 cm in diameter. ??Also received in this container is a smaller fragment of white-whitten tissue, vaguely cylindrical, measuring 0.3 c m in length. ??The specimen is submitted entirely as (F). ??(Dr. Taylor)/[facility] End of Report Specimen Performing Organization Address City/State/ZIP Code Phon e Number [facility] [address] [place] [address] SERVICES [facility] [address] [place] [address] documented in this encounter Visit Diagnoses Not on filedocumented in this encounter
== END 2021-11-21 13:20 | disposition home or self-care (01) ==
LOC: NCHCN 13:19
PROVIDERS: PCP Internal Medicine; Visit Provider Family Medicine
DX: Z00.00 Encounter for general adult medical examination without abnormal findings (principal); I10 Essential (primary) hypertension
CPT/HCPCS: 80048

== ENCOUNTER → 2022-11-24 09:08 | Outpatient (CLI) | payer MEDICARE, OTHER, SELFPAY ==
--- NOTE | 2022-11-24 | DI.RAD_ITS ---
Exam(s) XR KNEE LT 3V AP,LAT,TANIA EXAM: XR KNEE LT 3V AP,LAT,TANIA CLINICAL HISTORY: OA MULTIPLE JOINTS, M15.9. TECHNIQUE: 2D digital imaging was performed of the left knee. Three images were obtained. AP, late ral and PA tunnel views were obtained. COMPARISON: No priors for comparison. FINDINGS: BONES: No acute fracture is present. No bony destructive lesion is seen. JOINTS: There are marked tricompartment degenerative changes present characterized by joint space hamida rowing and osteophytes. The findings are most marked in the medial femoral tibial and patellofemoral joint. No joint effusion is seen. No loose body. SOFT TISSUE: Normal. IMPRESSION: Marked osteoarthritis of the knee. DATA REPOSITORY: RADIATION DOSE DELIVERED:
--- NOTE | 2022-11-24 13:15 | DI.RAD_ITS ---
Exam(s) XR KNEE RT 3V AP,LAT,TANIA EXAM: XR KNEE RT 3V AP,LAT,TANIA CLINICAL HISTORY: OA MULTIPLE JOINTS,M15.9. TECHNIQUE: 2D digital imaging was performed of the right knee. Three views obtained. AP, lateral an d PA tunnel views were obtained. COMPARISON: No exams were available for comparison FINDINGS: BONES: No acute fracture is present. No bony destructive lesion is seen. JOINTS: There are marked tricompartment degenerative changes characterized by joint space narrowing a nd osteophytes. Findings are most marked in the medial femoral tibial patellofemoral joint. No join t effusion is seen. SOFT TISSUE: Atherosclerosis. IMPRESSION: Marked osteoarthritis of the right knee. DATA REPOSITORY: RADIATION DOSE DELIVERED:
== END ==
PROVIDERS: PCP Internal Medicine; Visit Provider Family Medicine
DX: M17.0 Bilateral primary osteoarthritis of knee (principal)
CPT/HCPCS: 73562

== ENCOUNTER 2023-10-28 09:18 | Emergency (ER) | payer MEDICARE, OTHER, SELFPAY ==
[2023-10-28 09:23] VITALS: BP 186/102; PULSE 69; RESP 10; TEMP 37; O2SAT 97
--- NOTE | 2023-10-28 09:30 | DI.CT_ITS ---
Exam(s) CT HEAD WO EXAM: CT HEAD WO CLINICAL HISTORY: Seizure like activity. TECHNIQUE: Imaging Protocol: Axial computed tomography images with coronal and sagittal reformatted images were created and reviewed COMPARISON: No exams were available for comparison FINDINGS: There are no skull fractures. There is complete opacification of the right maxillary sinus. There is some mucoperiosteal thickening in this sinus. No bone dehiscence evident. There is some mucosal th ickening in the opposite-left maxillary sinus, not associated with a fluid level nor bone dehiscence. The frontal sinuses are clear as are the sphenoid sinuses. There is evidence of probable prior in T endoscopic surgery with resection of multiple bilateral ethmoidal air cells. Left mastoid air cell s are clear as is the left middle ear cavity. There is opacification mastoid air cells on the opposi te-right side. Also opacification of the ipsilateral aditus ad antrum. Right middle ear ossicles ap pear intact. There is technical artifact over the lower aspect of the posterior fossa making evaluation of the mos t inferior aspect of the cerebellar hemispheres not possible. The visualized middle and upper aspect s of the cerebellar hemispheres appear unremarkable. There is no evidence of intracranial hemorrhage, mass effect, or shift of midline structures. There are no extra-axial fluid collections. The ventricles are not enlarged or shifted and there is no blo od within the ventricular system nor within the basal cisterns. IMPRESSION: No acute intracranial findings on this noninfused CT scan of the brain. Lower most aspects of both c erebellar hemispheres are somewhat obscured by artifact. Significant paranasal sinus disease as described above. Also opacified right mastoid air cells. Con sistent with right mastoiditis. Left side mastoid air cells appear unremarkable. RADIATION DOSE DELIVERED: 985.33mGy.cm Total DLP DATA REPOSITORY: All CT scans at this facility are submitted to the National Radiology Data Registry (NRDR) Dose Index Registry (DIR) with the [employer] (ACR). RADIATION OPTIMIZATION: All CT scans at this facility use at least one of these dose optimization te chniques: automated exposure control; mA and/or kV adjustment per patient size (includes targeted exa ms where dose is matched to clinical indication); or iterative reconstruction.
--- NOTE | 2023-10-28 09:39 | DI.RAD_ITS ---
Exam(s) XR CHEST 1V IN DI DEPT EXAM: XR CHEST 1V IN DI DEPT CLINICAL HISTORY: Seizure like activity. TECHNIQUE: 2D digital imaging was performed. COMPARISON: No exams were available for comparison FINDINGS: Single AP portable view. Heart size is upper normal. The mediastinum is not widened. Lungs are clear. No infiltrates nor obvious pleural effusions. IMPRESSION: No acute pulmonary findings on this single AP portable view of the chest. DATA REPOSITORY: RADIATION DOSE DELIVERED:
--- NOTE | 2023-10-28 09:48 | ED.GENADUL_ITS ---
Discharge Plan Disposition Patient Disposition: Home Condition: Stable Discharge Details Clinical Impression: Observed seizure-like activity Primary Care Provider: Kishore Kumar ED Provider: Marlys Rogers Home Meds and New Rx's Prescriptions: Continued finasteride 5 mg tablet 5 mg PO DAILY Qty: 90 3RF atorvastatin [Lipitor] 40 MG tablet 40 mg PO HS lisinopril 20 MG tablet 10 mg PO HS aspirin [Aspir-81] 81 MG tablet,delayed release (DR/EC) 81 mg PO HS Advil PM 1 EACH tablet 1 cap PO HS PRN Discharge Instructions Instructions: Seizures, Adult ED Additional Instructions: Please follow up with PCP and Neurology in the next 2 weeks. No evidence of CVA today on the workup, labs are largely within normal limits. No urinary tract infection. Follow up with primary care provider in 3-5 days. Return to ED sooner if any worsening or concerns. Referrals: Kishore Kumar MD [Primary Care Provider] - 3 days Melany Solis MD [ [facility] STAFF PHYSICIAN] - 1 week (Seizure like activity) Discharge Data Discharge Date/Time-TO BE ENTERED AT DEPARTURE: 10/28/23 12:53 HPI General Mode of arrival: ambulatory . Date/Time Provider Initiated Documentation: 10/28/23 09:19 . Limitations to Documentation: no limitations . Information obtained by: patient, family, RN notes reviewed and old records reviewed . HPI Narrative: 77-year-old male presents to the ER with seizure-like activity which occurred last night while in bed. reports that patient was becoming very stiff, moaning and got up and walked around and was incontinent of urine. Patient was confused and agitated last night. She reports that he has no history of seizures patient has no memory of the event. He did bite his tongue which is swollen. He denies any recent trauma no head injuries. He does drink alcohol however has not had any last night. Patient reports that he felt nauseous prior to dinner no vomiting. Prior to that had diarrhea for a couple of days. Denies any headache, blurry vision. He reports feeling tired today but no significant complaints. Does have a past medical history of high cholesterol hypertension. Related Data Home Medications ?Medication ?Instructions ?Recorded ?Confirmed aspirin 81 mg tablet,delayed 81 mg PO HS 12/25/12 10/28/23 release (Aspir-) atorvastatin 40 mg tablet (Lipitor) 40 mg PO HS 12/25/12 10/28/23 lisinopril 20 mg tablet 10 mg PO HS 12/25/12 10/28/23 ibuprofen-diphenhydramine citrate 1 cap PO HS PRN 04/05/17 10/28/23 200 mg-38 mg tablet (Advil PM) finasteride 5 mg tablet 5 mg PO DAILY prostate bleeding 05/10/18 10/28/23 #90 tabs Previous Rx's ?Medication ?Instructions ?Recorded finasteride 5 mg tablet 5 mg PO DAILY prostate bleeding 05/10/18 #90 tabs Allergies Allergy/AdvReac Type Severity Reaction Status Date / Time ciprofloxacin (From Cipro) AdvReac Severe n/v Unverified 10/28/23 09:37 General Stated Complaint: Seizure SALVATORE: 3 Review of Systems All systems reviewed & are unremarkable except as noted in HPI and below Constitutional Constitutional: Reports as per HPI Genitourinary Genitourinary: Reports urinary incontinence Neurologic Neurologic: Reports as per HPI, Reports confusion and Reports convulsions Psychiatric Psychiatric: Reports confusion Exam Narrative Exam Narrative: Constitutional: Alert and oriented x3. Appears stated age. Normal body habitus. Head: Normocephalic, no trauma. Eyes: Pupils PERRL, Red reflex noted, EOM's intact. Eyelids symmetrical without lesions, discharge, or swelling. ENT: Bilateral TM's WNL, External ear normal to inspection, no mastoid TTP, swelling, or erythema, Nasal turbinates WNL, no nasal discharge. Normal dentition, Posterior pharynx WNL, no exudate. Chest: RRR, Normal S1, S2, distal pulses intact. Resp: Lungs clear to auscultation bilaterally, no wheezes, rales, or rhonchi. Abdomen: Soft, non-distended, Normoactive bowel sounds all 4 quads. Musculoskeletal: Normal gait, Moves all 4 extremities without difficulty. Skin: No suspicious rashes or lesions. Capillary refill less than 2 sec. Neurologic: Cranial nerves II-XII intact. Alert and oriented x 3. Motor: No deficits noted. Sensory: Intact bilaterally all 4 extremities. 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 Hematologic/Lymphatic: No ecchymosis, no lymphadenopathy. Course Vital Signs Vital signs: Vital Signs Temperature 37.0 C 10/28/23 09:23 Pulse 69 10/28/23 09:23 Respiratory Rate 10 L 10/28/23 09:23 Blood Pressure 186/102 H 10/28/23 09:23 Pulse Oximetry 97 10/28/23 09:23 Temperature 37.0 C 10/28/23 09:23 Pulse 69 10/28/23 09:23 Respiratory Rate 10 L 10/28/23 09:23 Blood Pressure 186/102 H 10/28/23 09:23 Blood Pressure Position Supine 10/28/23 09:23 Pulse Oximetry 97 10/28/23 09:23 Oxygen Delivery Method Room Air 10/28/23 09:23 Oxygen Flow Rate 0 10/28/23 09:23 Pain Level 0 10/28/23 09:23 Medical Decision Making 77-year-old male presents to the ER with seizure-like activity which occurred last night while in bed. reports that patient was becoming very stiff, moaning and got up and walked around and was incontinent of urine. Patient was confused and agitated last night. She reports that he has no history of seizures patient has no memory of the event. He did bite his tongue which is swollen. He denies any recent trauma no head injuries. He does drink alcohol however has not had any last night. Patient reports that he felt nauseous prior to dinner no vomiting. Prior to that had diarrhea for a couple of days. Denies any headache, blurry vision. He reports feeling tired today but no significant complaints. Does have a past medical history of high cholesterol hypertension. Workup ordered including CBC CMP urinalysis UDS ethyl alcohol level, head CT and chest x-ray. Tick and Lyme panel added onto labs. Labs show white blood cell count 12.2, neutrophils 9.20, CMP within normal limits, lipase TSH within normal limits, urinalysis shows no leukocytes no ni trites no evidence of UTI, THC on UDS is positive. Tick and Lyme panel pending at this time. COVID flu and RSV negative. Head CT within normal limits and chest x-ray also within normal limits. On patient reevaluation discussed labs and imaging with patient and family, he reports he feels fine. They do feel comfortable being discharged home. Did give him a referral for neurology for follow-up and PCP close follow-up. Discussed strict return instructions to return to the ER for any feeling ill at all and or worsening symptoms. They verbalized agreement with the plan. Patient remained hemodynamically stable throughout the remainder of stay. Patient was given 0.5 of lorazepam IV prior to discharge. This text was generated using [employer] system, please disregard any oddities of phrase or misspellings. Medical Records Medical records reviewed: Yes I reviewed the patient's medical records. Lab Data Lab results reviewed: Yes I reviewed the patient's lab results. Labs: Laboratory Tests Range/Units 10/28/23 10/28/23 10/28/23 10:09 11:15 11:22 WBC (4.4-10.8) 10^3/uL 12.24 H RBC (4.36-5.78) 10^6/uL 4.95 Hgb (13.5-17.5) g/dL 15.2 Hct (40.0-50.0) % 43.9 MCV (80-95) fL 89 MCH (27.0-33.0) pg 30.7 MCHC (32.0-36.0) % 34.6 RDW (11.8-14.1) % 11.9 Plt Count (130-400) 10^3/uL 263 MPV (8.0-11.0) fL 8.3 Immature Gran % % 0.3 Neutrophils % % 75.2 Lymphocytes % % 13.2 Monocytes % % 10.8 Eosinophils % % 0.2 Basophils % % 0.3 Nucleated RBC % (0.0-0.3) % 0.0 Absolute Neutrophils (1.2-6.7) 10^3/uL 9.20 H Absolute Lymphocytes (1.2-3.4) 10^3/uL 1.62 Absolute Monocytes (0.1-0.8) 10^3/uL 1.32 H Absolute Eosinophils (0.0-0.7) 10^3/uL 0.02 Absolute Basophils (0.0-0.2) 10^3/uL 0.04 Sodium (136-145) mmol/L 139 Potassium (3.5-5.1) mmol/L 3.9 Chloride (98-107) mmol/L 105 Carbon Dioxide (21.0-32.0) mmol/L 28.1 Anion Gap (3-11) mmol/L 5.9 BUN (7-18) mg/dL 13 Creatinine (0.70-1.30) mg/dL 0.9 Est GFR (CKD-EPI 2020) (mL/min/1.73m2) 88.51 Glucose (74-106) mg/dL 100 Calcium (8.5-10.1) mg/dL 9.1 Magnesium (1.8-2.4) mg/dL 2.1 Total Bilirubin (0.2-1.0) mg/dL 0.89 AST (15-37) U/L 27 ALT (16-63) U/L 23 Alkaline Phosphatase (46-116) U/L 87 Total Protein (6.4-8.2) g/dL 6.5 Albumin (3.4-5.0) g/dL 3.4 Lipase (16-77) U/L 22 TSH (0.36-3.74) uIU/mL 1.08 Urine Color (Yellow) Yellow Urine Clarity (Clear) Clear Urine pH (5-8) 6.0 Ur Specific [place] (1.005-1.025) 1.020 Urine Protein (Neg-Trace) mg/dL Negative Urine Ketones (Negative) mg/dL Negative Urine Blood (Negative) Negative Urine Nitrite (Negative) Negative Urine Bilirubin (Negative) Negative Urine Urobilinogen (Up to 0.2) mg/dL 0.2 Ur Leukocyte Esterase (Negative) Negative Urine Glucose (Negative) mg/dL Negative Urine Opiates Screen (Negative) Negative Urine Methadone Screen (Negative) Negative Ur Barbiturates Screen (Negative) Negative Ur Tricyclics Screen (Negative) Negative Ur Amphetamines Screen (Negative) Negative U Benzodiazepines Scrn (Negative) Negative Urine Cocaine Screen (Negative) Negative Ur THC Screen (Negative) Positive A Ethyl Alcohol (<10) mg/dL < 3.0 COVID-19 Source Nasopharynx SARS-CoV-2 (PCR) (Negative) Negative Influenza Type A (PCR) (Negative) Negative Influenza Type B (PCR) (Negative) Negative RSV (PCR) (Negative) Negative Quality:SDOH Health Related Social Needs: No Data to Display PFSH All Active Problems (Updated 10/28/23 @ 12:11 by Marlys Rogers NP) Observed seizure-like activity (Acute) BPH w urinary obs/LUTS (Acute 02/12/17) Chronic ethmoidal sinusitis (Acute 05/22/16) Chronic frontal sinusitis (Acute 05/22/16) Chronic maxillary sinusitis (Acute 05/22/16) Chronic sphenoidal sinusitis (Acute 05/22/16) Deviated nasal septum (Acute 05/22/16) Gross hematuria (Acute 05/08/17) Hypertrophy of nasal turbinates (Acute 05/22/16) 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 Lion Ruiz 12-31-2012.by Gross hematuria (Acute) Social History Smoking/Tobacco Use Status: Never Smoking risk assessment performed?: Yes Alcohol Intake: current Alcohol Intake frequency: 0-2 drinks per day Drug use: Daily Substance use type: marijuana Do you feel safe in your relationship?: Yes
[2023-10-28 10:11] LABS: Abs Immature Grans 0.04 10^3/uL (0.0-0.06); Absolute Basophil Count 0.04 10^3/uL (0.0-0.2); Absolute Monocyte Count 1.32 10^3/uL (0.1-0.8); Basophils % 0.3 %; Eosinophils % 0.2 %; HCT 43.9 % (40.0-50.0); HGB 15.2 g/dL (13.5-17.5); Immature Grans % 0.3 %; Lymphocytes % 13.2 %; MCH 30.7 pg (27.0-33.0); MCHC 34.6 % (32.0-36.0); MCV 89 fL (80-95); MPV 8.3 fL (8.0-11.0); Monocytes % 10.8 %; Neutrophils % 75.2 %; Platelet Count 263 10^3/uL (130-400); RBC 4.95 10^6/uL (4.36-5.78); RDW 11.9 % (11.8-14.1); RDW-SD 38.7 fL; WBC 12.24 10^3/uL (4.4-10.8)
[2023-10-28 10:12] LABS: Absolute Eosinophil Count 0.02 10^3/uL (0.0-0.7); Absolute Lymphocyte Count 1.62 10^3/uL (1.2-3.4)
[2023-10-28 10:37] LABS: ALT 23 U/L (16-63); AST 27 U/L (15-37); Albumin 3.4 g/dL (3.4-5.0); Alkaline Phosphatase 87 U/L (46-116); Anion Gap 5.9 mmol/L (3-11); BUN 13 mg/dL (7-18); Bilirubin, Total 0.89 mg/dL (0.2-1.0); CO2 28.1 mmol/L (21.0-32.0); CREATININE 0.9 mg/dL (0.70-1.30); Calcium 9.1 mg/dL (8.5-10.1); Chloride 105 mmol/L (98-107); Estimated GFR 88.51 (mL/min/1.73m2); Glucose 100 mg/dL (74-106); Lipase 22 U/L (16-77); Magnesium 2.1 mg/dL (1.8-2.4); Potassium 3.9 mmol/L (3.5-5.1); Sodium 139 mmol/L (136-145); TSH (W/Ref FT4) 1.08 uIU/mL (0.36-3.74); Total Protein 6.5 g/dL (6.4-8.2)
[2023-10-28 10:38] LABS: ETHANOL BLOOD < 3.0 mg/dL (<10)
--- NOTE | 2023-10-28 10:41 | DI.VRAD_ITS ---
PROCEDURE INFORMATION: Exam: XR Chest Exam date and time: 10/28/2023 10:34 AM Age: 77 years old Clinical indication: Other: Syncope TECHNIQUE: Imaging protocol: Radiologic exam of the chest. Views: 1 view. COMPARISON: No relevant prior studies available. FINDINGS: Lungs: No focal consolidation seen. Pleural spaces: No large pleural effusion seen. Heart/Mediastinum: No cardiomegaly. Bones/joints: No acute abnormality. IMPRESSION: No acute findings to explain reported symptoms. Dictated and Authenticated by: Radha Cantu MD. Ordering:VIANCA Frankel MD
--- NOTE | 2023-10-28 11:07 | DI.VRAD_ITS ---
PROCEDURE INFORMATION: Exam: CT Head Without Contrast Exam date and time: 10/28/2023 10:43 AM Age: 77 years old Clinical indication: Other: Seizure TECHNIQUE: Imaging protocol: Computed tomography of the head without contrast. COMPARISON: No relevant prior studies available. FINDINGS: Limitations: Artifact from metallic dental hardware obscures surrounding tissues. Brain: No intracranial hemorrhage appreciated. No significant focal mass effect or significant midline shift. Generalized parenchymal volume loss. Chronic ischemic changes are noted. Cerebral ventricles: No disproportionate ventriculomegaly. Paranasal sinuses: Opacified right maxillary sinus. Mucosal thickening in the left maxillary sinus. Partially opacified ethmoid air cells. Mastoid air cells: Opacified right mastoid air cells and middle ear cavity. Bones: Right nasal bone deformity, indeterminate chronicity. Please correlate clinically. Lymph nodes: Bilateral cervical lymph nodes. Soft tissues: No acute findings. Vasculature: Arterial calcifications. IMPRESSION: 1. No acute intracranial abnormality is appreciated. 2. Sinus disease as above. 3. Opacified right mastoid air cells and middle ear cavity. Correlate clinically for mastoiditis/otitis media. 4. Additional findings as above. Dictated and Authenticated by: Radha Cantu MD. Ordering:VIANCA Frankel MD
[2023-10-28 11:32] LABS: Bilirubin Negative (Negative); Blood Negative (Negative); Clarity Clear (Clear); Glucose Negative (Negative); Ketones Negative (Negative); Leukocyte Esterase Negative (Negative); Nitrite Negative (Negative); Urobilinogen 0.2 mg/dL (Up to 0.2)
[2023-10-28 11:43] LABS: *AMPHETAMINES SCREEN URINE Negative (Negative); *BARBITURATES SCREEN URINE Negative (Negative); *BENZODIAZEPINES SCREEN URINE Negative (Negative); Cannabinoids THC Positive (Negative); Cocaine Screen,Urine Negative (Negative); METHADONE URINE SCREEN Negative (Negative); OPIATES URINE SCREEN Negative (Negative)
[2023-10-28 11:46] LABS: Tricyclic Antidepressants Negative (Negative)
[2023-10-28] MEDS: LORazepam 2 MG/ML VIAL 0.5 MG IVP (12:07)
[2023-10-28 12:16] LABS: COVID-19 PCR Negative (Negative); Influenza A PCR Negative (Negative); Influenza B PCR Negative (Negative); RSV PCR Negative (Negative)
[2023-10-28 12:19] LABS: Source Nasopharynx
[2023-10-29 11:25] LABS: Lyme Ab w Rflx to Lyme Confirm Negative (Negative)
[2023-10-30 20:18] LABS: Anaplasma phagocytophilum Negative (Negative); B. miyamotoi PCR Negative (Negative); Babesia divergens/MO-1 Negative (Negative); Babesia duncani Negative (Negative); Babesia microti Negative (Negative); Ehrlichia chaffeensis Negative (Negative); Ehrlichia ewingii/canis Negative (Negative); Ehrlichia muris eauclairensis Negative (Negative)
== END 2023-10-28 12:53 | disposition home or self-care (01) ==
LOC: ER 13:35
PROVIDERS: Emergency Provider Registered Nurse Emergency; PCP Internal Medicine
DX: R56.9 Unspecified convulsions (principal)
CPT/HCPCS: 36415; 36416; 80053; 80307; 82962; 83690; 87637; 87798; 96374; 99284; 70450; 71045; 80320; 81003; 83735; 84443; 85025; 86618; 99283; J2060

== ENCOUNTER 2023-11-14 02:17 | Outpatient (CLI) | payer MEDICARE, SELFPAY ==
--- NOTE | 2023-11-14 12:30 | DI.US_ITS ---
Exam(s) US CAROTID EXAM: US CAROTID CLINICAL HISTORY: I63.9 Cerebral infarction,unspecified. TECHNIQUE: Ultrasound carotids performed using grayscale, color-flow, and spectral Doppler imaging. COMPARISON: No exams were available for comparison FINDINGS: RIGHT CAROTID ARTERY: Plaque: No visible plaque Velocity elevation: None. LEFT CAROTID ARTERY: Plaque: No visible plaque Velocity elevation: None. VERTEBRAL ARTERIES: Antegrade flow. IMPRESSION: No evidence for hemodynamically significant carotid stenosis. Criteria for Carotid Stenosis: Normal: ICA PSV <125 cm/s no plaque or intimal thickening is visible. <50% stenosis: ICA PSV <125 cm/s and plaque or intimal thickening is visible. 50-69% stenosis: ICA PSV is 125-250 cm/s and plaque is visible. >70% stenosis to near occlusion: ICA PSV >250 cm/s with visible plaque and luminal narrowing. DATA REPOSITORY:
--- NOTE | 2023-11-14 13:30 | DI.US_ITS ---
APPROVED REPORT EXAM: Comprehensive 2D, Doppler, and color-flow Echocardiogram Patient Location: Out-Patient Wall Taper Helper: Va Felton RDCS (AE) Indications: Cerebral infarction unspecified Other Information Study Quality: Adequate Conclusion Normal left ventricular wall thickness and chamber size. Ejection fraction is 58%. Wall motion is n ormal Normal right ventricular size and function Both atria are normal in size Aortic valve is sclerotic and trileaflet without stenosis or regurgitation Mild mitral annular calcification. Mild mitral regurgitation Mild tricuspid regurgitation. Estimated right ventricular systolic pressure is 28 mmHg Ascending aorta measures 3.7 cm Wall motion Left Ventricle The left ventricle is normal size. The left ventricular systolic function is normal. The left ventric ular ejection fraction is within the normal range. There is normal left ventricular wall thickness. T here is normal LV segmental wall motion. There is no ventricular septal defect visualized. LVEF is 57 %. Right Ventricle The right ventricle is normal size. The right ventricular systolic function is normal. Atria The left atrium size is normal. The right atrium size is normal. The interatrial septum is intact wit h no evidence for an atrial septal defect. Aortic Valve The Aortic valve is sclerotic. Aortic valve is trileaflet. There is no aortic valvular stenosis. No a ortic regurgitation is present. Mitral Valve Mild mitral annular calcification. No evidence of mitral valve stenosis. mild mitral regurgitation. Tricuspid Valve The tricuspid valve is normal in structure. There is no tricuspid valve stenosis. mild tricuspid reg urgitation. The RVSP is 27.8 mmHg. Pulmonic Valve The pulmonary valve is normal in structure. There is no pulmonic valvular stenosis. Trace pulmonic re gurgitation. Great Vessels The aortic root is normal in size. The ascending aorta is mildly dilated. Aortic arch is not well vis ualized. IVC is normal in size and collapses >50% with inspiration. Pericardium There is no pericardial effusion. 2D Dimensions IVSD d PLAX 1.00 cm M: 0.6-1.2 Ao Root d 3.61 cm M: 3.1 - 3.7 LVPW d PLAX 1.00 cm M: 0.6 - 1.2 Ao Asc Diam d 3.72 cm M: 2.6 - 3.4 LVID d PLAX 4.41 cm M: 4.2 - 5.8 LVDs 3.02 cm M: 2.5 - 4.0 LV EF Teichholz 59.7 % FS 31.59 % LV EDV (Teich) 88.0 mL LV ESV (Teich) 35.4 mL M-Mode TAPSE 2.61 cm (M/F) >1.7 Auto EF LV EDV A4C 122.0 mL LV EDV A2C 130.1 mL LV EDV BP 129.8 mL LV ESV A4C 53.0 mL LV ESV A2C 57.6 mL LV ESV BP 55.8 mL LVEF(%) A4C 56.6 % LVEF(%) A2C 55.7 % LVEF(%) BP 57.0 % LV SV A4C 69.0 ml LV SV A2C 72.5 ml LV SV BP 74.0 ml LV CO A4C 4.0 L/min LV CO A2C 4.2 L/min LV CO BP 4.1 L/min HR A4C 57.88 BPM HR A2C 57.97 BPM LV EDV Index (BP) LA Volume LA Length A4C 5.7 cm LA Length A2C 4.9 cm LA Area A4C s 20.86 cm2 LA Area A2C s 17.53 cm2 LA Vol A4C A-L 65.24 mL LA Vol A2C A-L 53.39 mL LA Vol Biplane A-L 63.5 mL LA Vol/BSA A4C A-L LA Vol/BSA A2C A-L LA Vol/BSA BP A-L 32.4 mL/m2 LA Vol A4C MOD 61.0 mL LA Vol A2C MOD 49.5 mL LA Vol BP MOD 59.1 mL RA Volume RA Area A4C 15.0 cm2 RA ESV A4C (A-L) 38.6mL RA Vol/BSA A4C A-L RA Length A4C 4.9 cm RA ESV A4C (MOD) 35.6mL LV Diastology MV E' medial 0.069 (>0.07 m/s) MV E Vmax 0.73 (0.4-1.3 m/s) MV E/E' MED 10.67 (<14) MV A Vmax 0.85 (0.4-1.3 m/s) MV E' lateral 0.051 (>0.1 m/s) E/A Ratio 0.9 MV E/E' LAT 14.42 (<14) MV E' Average 0.060 m/s MV E/E'(average) 12.27 Aortic Valve AoV Vmax 1.06 m/s LVOT Vmax 0.93 m/s AoV Peak Grad 4.5 mmHg LVOT Peak Grad 3.4 mmHg AoV Area (Vmax) 2.77 cm2 LVOT VTI 0.208 m AoV VTI 0.235 m LVOT Mean Grad 1.7 mmHg AoV Mean Darron. 0.76 m/s LVOT SV 65.83 mL AoV Mean Grad 2.6 mmHg LVOT Diam s 2.00 cm AoV Area (VTI) 2.80 cm2 AV Regurg Peak Gr. 4.47 mmHg Velocity Ratio 0.88 Mitral Valve MV DT 225 (160-240 msec) MV Vmax TIPS 0.84 m/s MV Mean Grad 1.0 (<2mmHg) MV VTI 0.302 m Pulmonary Valve PV Vmax 1.06 (0.5-1.5 m/s) RVOT Vmax 0.88 m/s PV Peak Grad 4.5 mmHg RVOT Peak Gr. 3.1 mmHg PV Mean Darron 0.78 m/s RVOT VTI 0.234 m PV Mean Grad 2.7 mmHg RVOT Mean Gr. 1.8 mmHg Tricuspid Valve RA Pressure 3.00 mmHg TR Vmax 2.49 m/s TV S' 0.13 m/s TR Peak Grad 24.7 mmHg RVSP (TR) 27.8 mmHg
== END 2023-11-14 02:37 ==
LOC: DI 02:17
PROVIDERS: PCP Internal Medicine; Visit Provider Family Medicine
DX: I63.9 Cerebral infarction, unspecified (principal)
CPT/HCPCS: 93306; 93880

== ENCOUNTER 2023-11-22 15:34 | Outpatient (REF) | payer MEDICARE, SELFPAY ==
[2023-11-22 16:07] LABS: Calculated LDL 102 mg/dL (<100); Cholesterol 171 mg/dL (<200); HDL Cholesterol 54 mg/dL (40-60); Triglyceride 77 mg/dL (<150)
== END 2023-11-22 15:35 | disposition home or self-care (01) ==
LOC: NCHCN 15:34
PROVIDERS: PCP Family Medicine; Visit Provider Family Medicine
DX: E78.5 Hyperlipidemia, unspecified (principal)
CPT/HCPCS: 80061

== ENCOUNTER → 2023-11-29 13:53 | Outpatient (BNVA) | payer MEDICARE, SELFPAY | PROVIDERS: PCP Family Medicine; Referring Provider Registered Nurse Emergency; Visit Provider Psychiatry & Neurology Neurology | DX: R56.9 Unspecified convulsions (principal) | CPT/HCPCS: 99215 ==

== ENCOUNTER 2023-12-07 03:04 | Outpatient (CLI) | payer MEDICARE, SELFPAY ==
--- NOTE | 2023-12-10 14:24 | PDOC.EEG_ITS ---
Neurology EEG EEG: [facility] Department of Neurology EEG REPORT Date of Recordin12/07/23 Interpreting Physician: Dr. Melany Solis PCP/Referring Provider: Dr. Yrn Alfaro Reason for study: Mr. Carroll had a recent event in sleep concerning for seizure. Current Medications: Home Medications ?Medication ?Instructions ?Recorded ?Confirmed ?Type aspirin 81 mg tablet,delayed 81 mg PO HS 12/25/12 11/29/23 History release (Aspir-) atorvastatin 40 mg tablet (Lipitor) 40 mg PO HS 12/25/12 11/29/23 History lisinopril 20 mg tablet 10 mg PO HS 12/25/12 11/29/23 History ibuprofen-diphenhydramine citrate 1 cap PO HS PRN 04/05/17 11/29/23 History 200 mg-38 mg tablet (Advil PM) finasteride 5 mg tablet 5 mg PO DAILY prostate bleeding 05/10/18 11/29/23 Rx #90 tabs magnesium oxide 500 mg capsule 500 mg PO DAILY 11/29/23 11/29/23 History turmeric 400 mg capsule mg PO 11/29/23 11/29/23 History METHODS: A 21 channel digitized electroencephalogram was performed in the [facility]. The 10/20 international system of electrode placement was used and bipolar and referential electrode montages were recorded. In addition to EEG the patient was monitored for EKG and lateral/vertical eye movements. Activation procedures of photic stimulation and hyperventilation were performed if applicable. Video was used during activation procedures and during events where applicable. The duration of the recording was 30 minutes. DESCRIPTION OF EEG: The patient was noted to be awake and drowsy during the recording. During maximal wakefulness a 9-Hz posterior background rhythm was present which was well-modulated, symmetrical, reactive to eye opening, and of moderate voltage. With eye opening the background activity changed to a low voltage mixture of alpha, beta, and occasional theta range frequencies. Faster frequencies were present in the bilateral anterior head regions. There was a normal anterior- posterior voltage gradient. During drowsiness, there was attenuation of the posterior dominant background rhythm and vertex waves. No stage II sleep was recorded. There was occasional, asynchronous, non-rhythmic bitemporal, moderate-amplitude, delta slowing. Activating Procedures: Photic stimulation was performed which produced a symmetrical posterior driving response at various flash frequencies. Hyperventilation was not performed. EKG: EKG revealed normal sinus rhythm. INTERPRETATION: This EEG is abnormal due to occasional, asynchronous, non-rhythmic bitemporal slowing PRIOR EEG: none CLINICAL CORRELATION: The finding above could represent an area of focal cerebral dysfunction. No definite epileptiform activity was present. If seizure remains a strong clinical suspicion, a repeat, sleep-deprived or overnight EEG could be considered. Melany Solis MD Date of service: 12/07/23
== END 2023-12-10 23:59 | disposition home or self-care (01) ==
LOC: RT 03:04
PROVIDERS: PCP Family Medicine; Visit Provider Psychiatry & Neurology Neurology
DX: R68.89 Other general symptoms and signs (principal); R56.9 Unspecified convulsions; R94.01 Abnormal electroencephalogram [EEG]
CPT/HCPCS: 95816

== ENCOUNTER 2023-12-24 01:21 | Outpatient (CLI) | payer MEDICARE, SELFPAY ==
--- NOTE | 2023-12-24 12:55 | DI.MRI_ITS ---
Exam(s) MR BRAIN WO EXAM: MR BRAIN WO CLINICAL HISTORY: first seizure,r56.9 TECHNIQUE: Multiplanar multisequence MRI of the brain was performed. Additional coronal T2 sequences were performed COMPARISON: CT CT HEAD WO from 10/28/2023 FINDINGS: VENTRICLES AND EXTRA AXIAL SPACES: Normal in size and morphology for the patient's age. MIDLINE SHIFT: None. CEREBRAL PARENCHYMA: No focus of restricted diffusion to suggest acute infarct. No space-occupying le lola identified. Mild atrophy consistent with the patient's age. Minimal scattered foci of high sign al in the white matter consistent with sequela of chronic microvascular disease. BRAINSTEM/CEREBELLUM: Normal. VISUALIZED PARANASAL SINUSES: Opacification of the right maxillary sinus. Mucous retention at the fl oor of the left maxillary sinus. Mild ethmoid mucosal thickening. Prior ethmoid surgery. MASTOIDS:Some fluid in right mastoid air cells. Vasculature: Normal flow void. PITUITARY GLAND: Unremarkable. ORBITS: Unremarkable. IMPRESSION: Unremarkable MRI of the brain. Sinus disease, greatest in the right maxillary sinus. Small amount of fluid in right mastoid air kaushal ls. DATA REPOSITORY:
== END 2023-12-24 01:41 ==
LOC: DI 01:21
PROVIDERS: PCP Family Medicine; Visit Provider Psychiatry & Neurology Neurology
DX: J32.0 Chronic maxillary sinusitis (principal)
CPT/HCPCS: 70551

== ENCOUNTER → 2024-01-31 15:14 | Outpatient (BNVA) | payer MEDICARE, SELFPAY | PROVIDERS: PCP Family Medicine; Referring Provider Family Medicine; Visit Provider Psychiatry & Neurology Neurology | DX: R56.9 Unspecified convulsions (principal) | CPT/HCPCS: 99213 ==

== ENCOUNTER 2024-05-12 03:07 | Emergency (ER) | payer MEDICARE, SELFPAY ==
[2024-05-12] VITALS (21 sets, daily range): BP systolic 127–166; BP diastolic 53–85; PULSE 59–76; RESP 9–22; TEMP 36.6; O2SAT 94–98
--- NOTE | 2024-05-12 03:15 | DI.CT_ITS ---
Exam(s) CT HEAD WO EXAM: CT HEAD WO CLINICAL HISTORY: seizure, eval for bleed or mass. TECHNIQUE: Imaging Protocol: Axial computed tomography images with coronal and sagittal reformatted images were created and reviewed COMPARISON: CT CT HEAD WO from 10/28/2023 FINDINGS: Ventricles and Extra axial spaces: Normal in size and morphology for the patient's age. Hemorrhage: None. Cerebral parenchyma: No evidence of acute infarct or mass. Midline shift: None. Brainstem/Cerebellum: Normal. Calvarium: Normal. Visualized Paranasal sinuses:Complete opacification of the maxillary sinuses, with some worsening fro m prior. Mucosal thickening of ethmoid sinuses. Prior ethmoid sinus and nasal cavity surgery. Mastoids: Opacified right mastoid air cells, unchanged from prior. Soft Tissues: Unremarkable. ORBITS: Unremarkable. PITUITARY: Not enlarged. IMPRESSION: No acute intracranial process. Severe sinus disease. RADIATION DOSE DELIVERED: 866.29mGy.cm Total DLP DATA REPOSITORY: All CT scans at this facility are submitted to the National Radiology Data Registry (NRDR) Dose Index Registry (DIR) with the [employer] (ACR). RADIATION OPTIMIZATION: All CT scans at this facility use at least one of these dose optimization te chniques: automated exposure control; mA and/or kV adjustment per patient size (includes targeted exa ms where dose is matched to clinical indication); or iterative reconstruction.
--- NOTE | 2024-05-12 03:26 | ED.GENADUL_ITS ---
Discharge Plan Disposition Patient Disposition: Home Condition: Good Discharge Details Clinical Impression: Recurrent seizures Primary Care Provider: Yrn Alfaro ED Provider: Uri Alvarado Home Meds and New Rx's Prescriptions: New levetiracetam [Keppra] 500 mg tablet 500 mg PO BID Qty: 120 0RF No Action finasteride 5 mg tablet 5 mg PO DAILY Qty: 90 3RF magnesium oxide 500 mg capsule 500 mg PO DAILY atorvastatin [Lipitor] 40 MG tablet 40 mg PO HS lisinopril 20 MG tablet 10 mg PO HS Advil PM 1 EACH tablet 1 cap PO HS PRN Discharge Instructions Instructions: Seizures, Adult ED Additional Instructions: At this time your workup has returned reassuring. As we discussed together it is prudent to start you on an antiepileptic medication at this time. We have started you on Keppra 500 twice daily. Please follow-up closely at your scheduled appointment time with Dr. Solis. There is concern that alcohol can increase the likelihood of seizure. Even though you do not drink much, it would be prudent to cautiously stop alcohol consumption in general. You should not drive, operate machinery, climb heights (such as a ladder), swim, or bathe alone or do anything else which could be dangerous if you would have another seizure. Please abide by this for the next 6 months or until cleared by a physician. If you notice any worsening of your symptoms, or any new symptoms such as vomiting, diarrhea, fever, chills, shortness of breath, chest pain, numbness, weakness, or fainting , please return immediately to the emergency department for reevaluation. Please follow up with your primary care provider as soon as possible for reassessment and reevaluation. As always, it was a pleasure participating in your medical care today. Referrals: Yrn Alfaro MD [Primary Care Provider] - Melany Solis MD [ [facility] STAFF PHYSICIAN] - HPI General Date/Time Provider Initiated Documentation: 05/12/24 03:26 . HPI Narrative: This is a very pleasant 78-year-old male with a past medical history of BPH, hypertension, high cholesterol, and a suspected seizure about 5 months ago who presents today via EMS for evaluation of seizure. Patient had a tonic- clonic seizure in November, EEG showed bitemporal slowing, but no definitive seizure-like activity. Sleep deprivation EEG was ordered and performed however I do not have access to those results. Plan at that time was continued close mo nitoring and outpatient neurology follow-up. This evening the patient went out to dinner with his for tie, they had a uneventful evening, he had a single beer, and then tonight at home while sleeping he had a tonic-clonic seizure again, he bit his tongue and EMS was called. Upon EMSs arrival the patient was postictal, total seizure time was around 3 minutes in length. Aside for pain in his tongue the patient denies any other complaints upon his arrival here. Blood sugar was normal. He normally drinks 1 shot of whiskey every night, but did not have any tonight. No drug use. No other complaints. Related Data Home Medications ?Medication ?Instructions ?Recorded ?Confirmed atorvastatin 40 mg tablet (Lipitor) 40 mg PO HS 12/25/12 05/12/24 lisinopril 20 mg tablet 10 mg PO HS 12/25/12 05/12/24 ibuprofen-diphenhydramine citrate 1 cap PO HS PRN 04/05/17 05/12/24 200 mg-38 mg tablet (Advil PM) finasteride 5 mg tablet 5 mg PO DAILY prostate bleeding 05/10/18 05/12/24 #90 tabs magnesium oxide 500 mg capsule 500 mg PO DAILY 11/29/23 05/12/24 levetiracetam 500 mg tablet 500 mg PO BID #120 tabs 05/12/24 (Keppra) Previous Rx's ?Medication ?Instructions ?Recorded finasteride 5 mg tablet 5 mg PO DAILY prostate bleeding 05/10/18 #90 tabs levetiracetam 500 mg tablet 500 mg PO BID #120 tabs 05/12/24 (Keppra) Allergies Allergy/AdvReac Type Severity Reaction Status Date / Time ciprofloxacin (From Cipro) AdvReac Severe n/v Unverified 05/12/24 03:20 General Stated Complaint: Seizure SALVATORE: 2 Exam Narrative Exam Narrative: 1.Const: Well-nourished, Well-developed, appearing stated age 2.Eyes: PERRL, no conjunctival injection, and symmetrical lids. 3.ENT: Atraumatic external nose and ears. Moist MM. Neck: Symmetric, trachea midline, No thyromegaly. There is no evidence of raccoon eyes, donato sign, CSF rhinorrhea, mastoid tenderness, cranial crepitus, hemotympanum, exophthalmos, or hyphema. Patient demonstrates intact dentition with no signs of tooth avulsion or fracture, no signs of jaw deformity, no evidence of a LeFort's fracture, with an intact palate, nose and orbital region. There is no evidence of a nasal septal hematoma. No proptosis. Jaw closes symmetrically. Airway is clear. Patient does have a small nonbleeding partial laceration on the right distal tip of the tongue. Wound edges are well reapproximated. 4.CVS: +S1/S2, Peripheral pulses 2+ and equal in all extremities. Brisk capillary refill in all extremities. 5.RESP: Unlabored respiratory effort. Clear to auscultation bilaterally. No wheezes rales or rhonchi 6.GI: Soft, Nontender/Nondistended, No hepatosplenomegaly. No guarding or rebound. 7.MSK: Normocephalic/Atraumatic, Extremities w/o deformity or ttp No cyanosis or clubbing, Normal movement of all extremities 8.Skin: Warm, Dry. No rashes or lesions. 9.Neuro: applications support lead II-XII grossly intact. Sensation grossly intact, no focal neurologic deficits. All 6 cardinal planes of vision are fully intact. No evidence of rotatory or vertical nystagmus. The patient demonstrated a normal [id number], good dexterity. There was no evidence of dysdiadochokinesia. Patient was able to ambulate without difficulty. There was no wide-based gait. Romberg testing was normal. Lbuw-at-khzq testing was normal. Sensation was intact bilaterally as well as muscle strength bilaterally for all extremities. Patient was able to verbalize butter cup with no slurring, or miss pronunciation. 10.Psych: (AAO) x3. Appropriate mood and affect Course Vital Signs Vital signs: Vital Signs Temperature 36.6 C 05/12/24 03:08 Pulse 76 05/12/24 03:08 Respiratory Rate 22 05/12/24 03:08 Blood Pressure 165/85 H 05/12/24 03:08 Pulse Oximetry 96 05/12/24 03:08 Temperature 36.6 C 05/12/24 03:08 Temperature Source Temporal Artery Scan 05/12/24 03:08 Pulse 76 05/12/24 03:08 Respiratory Rate 22 05/12/24 03:08 Respiratory Effort Normal, Non-Labored 05/12/24 03:14 Blood Pressure 165/85 H 05/12/24 03:08 Blood Pressure Position Sitting 05/12/24 03:08 Pulse Oximetry 96 05/12/24 03:08 Oxygen Delivery Method Room Air 05/12/24 03:08 Oxygen Flow Rate 0 05/12/24 03:08 Pain Level 5 05/12/24 03:08 Medical Decision Making This is a very pleasant 78-year-old male with a past medical history of BPH, hypertension, high cholesterol, and a suspected seizure about 5 months ago who presents today via EMS for evaluation of seizure. Patient had a tonic- clonic seizure in November, EEG showed bitemporal slowing, but no definitive seizure-like activity. Sleep deprivation EEG was ordered and performed however I do not have access to those results. Plan at that time was continued close monitoring and outpatient neurology follow-up. This evening the patient went out to dinner with his for tie, they had a uneventful evening, he had a single beer, and then tonight at home while sleeping he had a tonic-clonic seizure again, he bit his tongue and EMS was called. Upon EMSs arrival the patient was postictal, total seizure time was around 3 minutes in length. Aside for pain in his tongue the patient denies any other complaints upon his arrival here. Blood sugar was normal. He normally drinks 1 shot of whiskey every night, but did not have any tonight. No drug use. No other complaints. Exam demonstrates well-appearing male, normal neurologic assessment. No evidence of significant trauma to the head neck or face. He does have a small bite on his tongue, with no active bleeding and no need for suturing. Differential is highest for epileptic seizure, we will check sodium level and electrolyte level, get a CT scan of the head to evaluate for trauma or bleed, get a screening EKG to evaluate for dysrhythmia, give 2 g of Keppra for loading dose, and plan to start him on outpatient Keppra therapy. 5:04 AM Laboratory workup has returned unremarkable, CT scan of the head negative for acute process, mastoid area is nontender on repeat exam. No signs of trauma otherwise. Patient feels well and has had no repeat seizure episode. Patient will be started on Keppra 500 twice daily as per neurology's recommendations. Recommend close follow-up outpatient with Dr. Solis. Referral will be placed. Recommend cessation of alcohol use. Discussed red flags for which to return. I have extensively reviewed the treatment plan and discharge instructions with the patient and their family. I have addressed all patient concerns at this time. The patient and family was made aware of what symptoms to monitor for that would warrant a return to the emergency department. Discussed the plan with the patient and family, they demonstrate verbal understanding and agreement with our assessment and plan at this time. The documentation in this chart was dictated using [employer]le[employer] dictation software. Please excuse any dictation errors. FINDINGS: Brain: There is no evidence of intracranial hemorrhage. No mass effect or midline shift. No territorial edema. Unremarkable white matter. Cerebral ventricles: There is moderate volume loss and commensurate ventricular dilatation, consistent with the patient's age. Paranasal sinuses: Mucoperiosteal thickening of bilateral ethmoid air cells. The included maxillary sinuses show complete opacification and medial bowing of the medial hernandez suggestive of bilateral maxillary mucoceles. There is a probable left antral choanal polyp. Mastoid air cells: Stable, sclerotic right mastoid bone, that may reflect chronic mastoid effusion. Bones: No acute fracture. Soft tissues: Unremarkable. Vasculature: There is a high riding right jugular bulb. IMPRESSION: 1. No acute intracranial findings. MIKE DODGE Preliminary Radiology Report MANUFACTURER'S REPRESENTATIVE (QA) DISCREPANCY? If there is a discrepancy between the preliminary and final interpretation, please notify [facility] via [email or web address]. If you do not have access to our QA portal, call our QA team at [phone] CONFIDENTIALITY STATEMENT This report is intended only for the use of the referring physician, and only in accordance with law, If you received this in error, call [phone] Page 2 of 2 2. The included upper portions of the maxillary sinuses show findings consistent with bilateral maxillary mucoceles. 3. Probable chronic right mastoid effusion, stable. 4. High riding right jugular bulb. 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 Do you feel safe at home: Yes Do you feel safe in your relationship?: Yes PAWSS Have you Been Recently Intoxicated or Drunk Within the Last 30 days?: No Have you Ever Experienced Previous Episodes of Alcohol Withdrawal?: No Have you ever Experienced Withdrawal Seizures?: No Have you ever Experienced Delirium Tremens(DT)s?: No Have you ever undergone Alcohol Rehabilitation Treatment (i.e, inpt ot outpatient treatment programs)?: No Have you ever Experienced Blackouts?: No Have you ever Combined Alcohol with other Downers within the last 90 days?: No Positive Blood Alcohol level on Presentation? [PCS.BAL]: No Evidence of Increased Autonomic Activity (i.e. HR>120, tremor, sweating, leslie tation, nausea)?: No Result: 0
[2024-05-12 03:28] LABS: Abs Immature Grans 0.02 10^3/uL (0.0-0.06); Absolute Basophil Count 0.05 10^3/uL (0.0-0.2); Absolute Eosinophil Count 0.13 10^3/uL (0.0-0.7); Absolute Lymphocyte Count 1.72 10^3/uL (1.2-3.4); Absolute Neutrophil Count 4.13 10^3/uL (1.2-6.7); Basophils % 0.7 %; Eosinophils % 1.9 %; HCT 43.3 % (40.0-50.0); HGB 14.6 g/dL (13.5-17.5); Immature Grans % 0.3 %; Lymphocytes % 25.5 %; MCH 29.9 pg (27.0-33.0); MCHC 33.7 % (32.0-36.0); MCV 89 fL (80-95); MPV 8.1 fL (8.0-11.0); Monocytes % 10.4 %; Neutrophils % 61.2 %; Platelet Count 277 10^3/uL (130-400); RBC 4.88 10^6/uL (4.36-5.78); RDW 12.2 % (11.8-14.1); RDW-SD 39.8 fL; WBC 6.75 10^3/uL (4.4-10.8)
--- NOTE | 2024-05-12 03:30 | RT.EKG_ITS ---
APPROVED REPORT Exam: Resting ECG Reason for Exam: seizure Patient Location: E HR:61 bpm ECG Measurements Heart Rate 61 AXIS WI 173 P 57 QRSd 125 QRS 54 QT 424 T 29 QTc 427 Conclusion Sinus rhythm...normal P axis, V-rate 60- 99 Right bundle branch block...QRSd>120, terminal axis(90,270) Physician: [email or web address]
[2024-05-12] MEDS: levETIRAcetam 2,000 MG in Normal Saline 100 ML 400 MG IVPB (03:42)
[2024-05-12 03:43] LABS: ALT 30 U/L (16-63); AST 22 U/L (15-37); Albumin 3.2 g/dL (3.4-5.0); Alkaline Phosphatase 95 U/L (46-116); Anion Gap 8.2 mmol/L (3-11); BUN 19 mg/dL (7-18); Bilirubin, Total 0.6 mg/dL (0.2-1.0); CO2 25.8 mmol/L (21.0-32.0); CREATININE 1.1 mg/dL (0.70-1.30); Calcium 8.9 mg/dL (8.5-10.1); Chloride 107 mmol/L (98-107); Estimated GFR 69.14 (mL/min/1.73m2); Glucose 118 mg/dL (74-106); Potassium 4.1 mmol/L (3.5-5.1); Sodium 141 mmol/L (136-145); Total Protein 6.6 g/dL (6.4-8.2)
[2024-05-12 03:52] LABS: ETHANOL BLOOD < 3.0 mg/dL (<10)
[2024-05-12 04:50] LABS: *AMPHETAMINES SCREEN URINE Negative (Negative); *BARBITURATES SCREEN URINE Negative (Negative); *BENZODIAZEPINES SCREEN URINE Negative (Negative); Cannabinoids THC Positive (Negative); Cocaine Screen,Urine Negative (Negative); METHADONE URINE SCREEN Negative (Negative); OPIATES URINE SCREEN Negative (Negative)
--- NOTE | 2024-05-12 04:50 | DI.VRAD_ITS ---
Addendum created by Karlos Babcock MD on 05/12/2024 4:55:03 AM EDT: Findings were discussed with SLIME GALVEZ at 05/12/2024 4:54 AM EDT. Initial report created on 05/12/2024 4:50:21 AM EDT: PROCEDURE INFORMATION: Exam: CT Head Without Contrast Exam date and time: 05/12/2024 3:57 AM Age: 78 years old Clinical indication: Stroke-like symptoms; Other: Seizure, eval for bleed or mass TECHNIQUE: Imaging protocol: Computed tomography of the head without contrast. Radiation optimization: All CT scans at this facility use at least one of these dose optimization techniques: automated exposure control; mA and/or kV adjustment per patient size (includes targeted exams where dose is matched to clinical indication); or iterative reconstruction. Other technique: STROKE PROTOCOL was implemented. COMPARISON: MR BRAIN WO 24/12/2023 12:23 FINDINGS: Brain: There is no evidence of intracranial hemorrhage. No mass effect or midline shift. No territorial edema. Unremarkable white matter. Cerebral ventricles: There is moderate volume loss and commensurate ventricular dilatation, consistent with the patient's age. Paranasal sinuses: Mucoperiosteal thickening of bilateral ethmoid air cells. The included maxillary sinuses show complete opacification and medial bowing of the medial hernandez suggestive of bilateral maxillary mucoceles. There is a probable left antral choanal polyp. Mastoid air cells: Stable, sclerotic right mastoid bone, that may reflect chronic mastoid effusion. Bones: No acute fracture. Soft tissues: Unremarkable. Vasculature: There is a high riding right jugular bulb. IMPRESSION: 1. No acute intracranial findings. 2. The included upper portions of the maxillary sinuses show findings consistent with bilateral maxillary mucoceles. 3. Probable chronic right mastoid effusion, stable. 4. High riding right jugular bulb. ASSESSMENT: ASPECTS ([facility] Stroke Program Early CT Score) is 10. Dictated and Authenticated by: Karlos Babcock MD. Orderin Jenny Grewal MD
[2024-05-12 04:52] LABS: Tricyclic Antidepressants Negative (Negative)
== END 2024-05-12 05:14 | disposition home or self-care (01) ==
PROVIDERS: Emergency Provider Student in an Organized Health Care Education/Training Program; PCP Family Medicine
DX: G40.909 Epilepsy, unspecified, not intractable, without status epilepticus (principal)
CPT/HCPCS: 36415; 80053; 80307; 93005; 96374; 99284; 70450; 80320; 85025; 93010; J1953

== ENCOUNTER → 2024-05-14 08:19 | Outpatient (BNVA) | payer MEDICARE, SELFPAY | PROVIDERS: PCP Family Medicine; Referring Provider Family Medicine; Visit Provider Psychiatry & Neurology Neurology | DX: G40.909 Epilepsy, unspecified, not intractable, without status epilepticus (principal) | CPT/HCPCS: 99214 ==

== ENCOUNTER → 2024-11-12 08:46 | Outpatient (BNVA) | payer MEDICARE, SELFPAY | PROVIDERS: PCP Family Medicine; Referring Provider Family Medicine; Visit Provider Psychiatry & Neurology Neurology | DX: G40.909 Epilepsy, unspecified, not intractable, without status epilepticus (principal); G47.33 Obstructive sleep apnea (adult) (pediatric); I10 Essential (primary) hypertension | CPT/HCPCS: 99214 ==